=== PATIENT | male | born 1935 | race Caucasian/White ===

== ENCOUNTER 2017-05-16 13:42 | Emergency (ER) | payer OTHER ==
[~2017-05-16] VITALS: Ht 165.1 cm; Wt 125.0 kg
[~2017-05-16 13:42] MED LIST: ACET-1311 PO; CALC0.2510 PO; CALC500T72 PO; CITA20TA9 PO; ERGO500037 PO; FERR1TAB62 PO; FLM4 PO; FLUT0.15 NAE; FURO40TA3 PO; IMMODIUM 2 MG PO; LACT1TAB4 PO; LACTINEX PO; LEVO137T3 PO; MAGN400T5 PO; METO2.5T PO; NVLGI SC; OXGN; POLY335019 PO; PRLSR20 PO; SKINCRE34 TOP; TRIA0.1C20 TOP; [UNRECOGNIZED DRUG - CODE] PO; [UNRECOGNIZED DRUG - SUPPLY]
[2017-05-16 13:44] VITALS: TEMP 36.4; Ht 165.1 cm; Wt 125.0 kg
[2017-05-16] MEDS ORDERED: FURO80TA63 PO (14:15)
[2017-05-16] MEDS ORDERED: TAMS0.4C38 PO (14:17)
[2017-05-16] MEDS ORDERED: ATOR10TA82 PO (14:20)
[2017-05-16] MEDS ORDERED: NVLG INJ (14:29)
[2017-05-16] MEDS ORDERED: CHOL1000 PO (14:30)
--- NOTE | 2017-05-16 14:35 | DIAGNOSTIC IMAGING REPORT ---
HEAD CT NONCONTRAST CT DOSE: 537.48 mGy.cm HISTORY: fall, posterior impact TECHNIQUE: Multiaxial CT images of the head were performed without the use of intravenous contrast. Automated exposure control was utilized for this study. Comparison: Head CT 12/19/2010. Findings: The paranasal sinuses and mastoid air cells are clear. The calvarium and skull base are intact. There is no mass, hematoma, midline shift, acute infarct. White matter hypodensity is nonspecific but suggestive of microvascular ischemic change. The ventricles and sulci demonstrate mild age-related involutional changes. Impression: No significant change compared to the prior study. No acute intracranial abnormality. Electronically signed by: Jah Campos M.D. 05/16/2017 2:34 PM Dictated Date/Time: 05/16/2017 2:24 PM
[2017-05-16 15:13] VITALS: BP 161/77; PULSE 64; O2SAT 94
--- NOTE | 2017-05-16 18:31 | EMERGENCY ROOM VISIT NOTE ---
History Report prepared by María: Brenda Harley Under the Supervision of: Dr. Oskar Gutierrez M.D. First contact with patient: 13:51 Chief Complaint: FALL Stated Complaint: FELL YESTERDAY, HIT HEAD History of Present Illness The patient is an 81 year old male who presents to the Emergency Room with complaints of a sudden fall that occurred yesterday. He currently rates his discomfort as a 1/10 in severity. The patient states that yesterday he fell after he lost his balance when he fell over. He states that he hit the back of his head and bruised his right elbow due to the fall. The patient states that he takes aspirin daily. He reports a history of congestive heart failure, pneumonia, and skin cancer. The patient notes chronic lower back pain. He reports that he lives alone and does not have family in the area. The patient states that he has been doing everything normally since the fall, noting that he drove here today. Pt denies LOC, headache, visual changes, neck pain, chest pain, breathing difficulties, nausea, vomiting, abdominal pain, extremity pain, numbness, weakness, open wounds, active bleeding, or other complaints. Source of History: patient Onset: yesterday Position: other (global) Symptom Intensity: 1/10 Quality: other (fall) Timing: other (sudden) Note: Associated Symptoms: right elbow bruise, hit back of head Review of Systems See HPI for pertinent positives and negatives. A total of ten systems were reviewed and were otherwise negative. Past Medical & Surgical Medical Problems: (1) Atrial fibrillation (2) Benign essential hypertension (3) Congenital heart failure (4) Diabetes mellitus type 2 (5) Gastroesophageal reflux disease (6) Heart disease (7) History of malignant neoplasm of prostate (8) Hypothyroidism (9) Irradiation cystitis (10) Obesity (11) Peripheral venous insufficiency (12) Pleural effusion Family History Cancer Diabetes mellitus Social History Smoking Status: Never Smoker Drug Use: none Marital Status: Housing Status: care home Occupation Status: employed, retired Current/Historical Medications Scheduled Aspirin (Qc Childrens Aspirin), 81 MG PO DAILY Atorvastatin (Lipitor), 10 MG PO QPM Calcitriol (Rocaltrol Cap), 0.25 MCG PO DAILY Calcium Ascorbate (Vitamin C), 500 MG PO DAILY Cholecalciferol (Vitamin D3), 1 TAB PO DAILY Citalopram Hydrobromide (Celexa), 20 MG PO DAILY Eucerin (Eucerin), 1 APPLN TOP 2XWK Ferrous Sulfate (Ferrous Sulfate), 325 MG PO DAILY Fluticasone Propionate (Nasal) (Flonase Allergy Relief), 2 SPRAYS LAURA DAILY Furosemide (Lasix), 80 MG PO BID Insulin Aspart (Novolog), 1 DOSE INJ QID Lactobacillus (Floranex), 1 TAB PO TID Levothyroxine Sodium (Levothyroxine Sodium), 137 MCG PO DAILY Magnesium Oxide (Mag-Ox), 400 MG PO DAILY Metolazone (Zaroxolyn), 2.5 MG PO MWF Omeprazole (Prilosec), 20 MG PO DAILY Tamsulosin Hcl (Flomax), 0.4 MG PO DAILY Scheduled PRN Acetaminophen (Tylenol), 650 MG PO Q4 PRN for Pain Polyethylene Glycol 3350 (Miralax), 17 GM PO DAILY PRN for Constipation Allergies Coded Allergies: No Known Allergies (Unverified , 05/16/17) Physical Exam Vital Signs Date Time Temp Pulse Resp B/P (MAP) Pulse Ox O2 Delivery O2 Flow Rate FiO2 05/16/17 15:13 64 18 161/77 94 05/16/17 14:04 61 20 150/84 97 Room Air 05/16/17 13:44 36.4 68 17 150/79 93 Room Air Physical Exam GENERAL: Awake, alert, well-appearing, in no distress HENT: Small ecchymosis on superior occiput. Oropharynx unremarkable. EYES: Normal conjunctiva. Sclera non-icteric. NECK: Supple. No nuchal rigidity. FROM. No JVD. Nontender. RESPIRATORY: Clear to auscultation. CARDIAC: Regular rate, normal rhythm. Extremities warm and well perfused. Pulses equal. ABDOMEN: Soft, non-distended. No tenderness to palpation. No rebound or guarding. No masses. RECTAL: Deferred. MUSCULOSKELETAL: Ecchymosis to right elbow without tenderness or limited range of motion. The rest of the right upper extremity is atraumatic. Chest examination reveals no tenderness. The back is symmetrical on inspection without obvious abnormality. Minimal lumbar tenderness that the patient states is chronic. There is no CVA tenderness to palpation. No joint edema. LOWER EXTREMITIES: 3+ pitting edema. Calves are equal size bilaterally and non- tender. No discoloration. NEURO: Normal sensorium. No sensory or motor deficits noted. SKIN: No rash or jaundice noted. Medical Decision & Procedures ER Provider Diagnostic Interpretation: CT: Radiology results as stated below per my review and radiologist interpretation HEAD CT NONCONTRAST CT DOSE: 537.48 mGy.cm HISTORY: fall, posterior impact TECHNIQUE: Multiaxial CT images of the head were performed without the use of intravenous contrast. Automated exposure control was utilized for this study. Comparison: Head CT 12/19/2010. Findings: The paranasal sinuses and mastoid air cells are clear. The calvarium and skull base are intact. There is no mass, hematoma, midline shift, acute infarct. White matter hypodensity is nonspecific but suggestive of microvascular ischemic change. The ventricles and sulci demonstrate mild age-related involutional changes. Impression: No significant change compared to the prior study. No acute intracranial abnormality. Electronically signed by: Jah Campos M.D. 05/16/2017 2:34 PM Dictated Date/Time: 05/16/2017 2:24 PM ED Course 1358: The patient was evaluated in room B2. A complete history and physical exam was performed. 1504: I reevaluated the patient and he is doing well. I discussed the exam findings with him and I discussed the treatment plan. He verbalized complete understanding and agreement. He is ready to go home. Medical Decision Medication Reconciliation: I attest that I have personally reviewed the patient' s current medication list Blood pressure screening: Patient was found to have an elevated blood pressure and was referred to their primary doctor for recheck and further treatment. Triage Nursing notes reviewed. The patient's presentation and history were concerning for a fall and head injury. Etiologies such as closed head injury, contusion, concussion, fracture, soft tissue injury,intracranial bleeding, as well as other traumatic pathologies were entertained. The patient's physical examination is as above. He had no neck issues. There were no open wounds. He stated his fall was accidental. The patient underwent CT imaging and this was negative. On reassessment the patient was doing well. He has a minor closed head injury from his fall. He is doing well with his daily activities.. The patient has no other complaints. I discussed conservative management. He was in agreement. The patient was discharged in stable condition. Impression Primary Impression: Closed head injury Additional Impression: Fall Scribe Attestation The scribe's documentation has been prepared under my direction and personally reviewed by me in its entirety. I confirm that the note above accurately reflects all work, treatment, procedures, and medical decision making performed by me. Departure Information Dispostion Home / Self-Care Referrals Luis Manuel Hinojosa D.O. (PCP) Forms HOME CARE DOCUMENTATION FORM, IMPORTANT VISIT INFORMATION Patient Instructions My [facility] Additional Instructions Tylenol(acetaminophen) may be used for headaches. Use 1000mg every six hours as needed. Avoid using more than 4000mg in a 24 hour period. Avoid anti-inflammatories such as aspirin, ibuprofen, Alleve, naprosyn, Motrin, or Advil as these can interfere with blood clotting and lead to bleeding within the brain after a traumatic injury. FOLLOW UP INSTRUCTIONS: You should have a follow up with your family doctor in 3-5 days regarding your injury. Problems could arise over the next 24 to 48 hours and you MUST go to the hospital immediately if you: -Have a headache that suddenly gets worse. -Are very drowsy or cannot be woken up from sleep. -Can't recognize people or places. -Have repeated vomiting. -Behave unusually, seemed confused, or start acting irritable. -Have a seizure (arms and legs start jerking uncontrollably). -Have weak or numb arms or legs. -Are unsteady on your feet -Experience slurred speech or difficulty speaking. Problem Qualifiers
== END 2017-05-16 15:13 | disposition home or self-care (01) ==
LOC: C.EDB 13:45
DX: S09.90XA Unspecified injury of head, initial encounter (principal); W19.XXXA Unspecified fall, initial encounter; I50.9 Heart failure, unspecified; Z87.01 Personal history of pneumonia (recurrent); Z85.828 Personal history of other malignant neoplasm of skin; I48.91 Unspecified atrial fibrillation; I10 Essential (primary) hypertension; E11.9 Type 2 diabetes mellitus without complications; K21.9 Gastro-esophageal reflux disease without esophagitis; E03.9 Hypothyroidism, unspecified; Z85.46 Personal history of malignant neoplasm of prostate; E66.9 Obesity, unspecified; I73.9 Peripheral vascular disease, unspecified; Z80.9 Family history of malignant neoplasm, unspecified; Z83.3 Family history of diabetes mellitus; Z79.82 Long term (current) use of aspirin; Z79.4 Long term (current) use of insulin; Z79.899 Other long term (current) drug therapy

== ENCOUNTER 2018-11-26 16:11 | Inpatient (IN) ==
[2018-11-26] MEDS ORDERED: SODIUM CHLORIDE 0.9% 1000ML 1,000 ML IV STA (16:34)
[2018-11-26 17:15] LABS: INR 1.1 (0.9-1.1); Partial Thromboplastin Time 26.6 Seconds (21.0-31.0); Prothrombin Time 11.4 Seconds (9.0-12.0)
[2018-11-26 17:16] LABS: Appearance Urine Slightly Cloudy (Clear); Color Urine Red
[2018-11-26 17:17] LABS: Specific Gravity Urine 1.011 (1.000-1.060)
[2018-11-26 17:19] LABS: RBC Urine >30 /hpf (0-4); WBC Urine >30 /hpf (0-5)
[2018-11-26 17:20] LABS: Hematocrit (blood only) 21.2 % (42-52); Hemoglobin 6.5 g/dL (14.0-18.0); Mean Corpuscular Hgb Conc 30.7 g/dL (32-36); Mean Platelet Volume 9.1 fL (7.4-10.4); Platelet Count 277 K/uL (130-400); RDW Coefficient of Variation 13.9 % (11.5-14.5); RDW Standard Deviation 50.1 fL (36.4-46.3); Red Blood Count 2.12 M/uL (4.7-6.1); White Blood Count 6.42 K/uL (4.8-10.8)
[2018-11-26 17:21] LABS: Bacteria Urine 2+ (Negative); Calcium Oxalate Crystals Urine Present (None Prsent)
[2018-11-26 17:25] LABS: Albumin Globulin Ratio 0.5 (0.9-2); Albumin Level 1.9 gm/dl (3.4-5.0); BUN Creatinine Ratio 19.7 (10-20); Bilirubin,Total 0.2 mg/dl (0.2-1); Calcium 8.6 mg/dl (8.5-10.1); Creatinine Clr Calc Pharmacy 29.8 ml/min; Est GFR (African American) 32.7; Est GFR (Non-African American) 28.2; Globulin 4.2 gm/dl (2.5-4.0); Potassium 4.5 mmol/L (3.5-5.1); Total Protein 6.1 gm/dl (6.4-8.2)
[2018-11-26 17:28] LABS: Basophils # (auto) 0.02 K/uL (0-0.2); Basophils % (auto) 0.3 %; Eosinophils # (auto) 0.32 K/uL (0-0.5); Hypochromasia Present; Immature Granulocytes # (auto) 0.01 K/uL (0.00-0.02); Immature Granulocytes % (auto) 0.2 %; Lymphocytes # (auto) 0.91 K/uL (1.2-3.4); Lymphocytes % (auto) 14.2 %; Monocytes # (auto) 0.45 K/uL (0.11-0.59); Neutrophils # (auto) 4.71 K/uL (1.4-6.5); Neutrophils % (auto) 73.3 %
[2018-11-26] MEDS ORDERED: cefTRIAXone SODIUM 1,000 MG/50 ML BAG IV STA (17:59)
[2018-11-26] MEDS ORDERED: POLYETHYLENE (MIRALAX) 17 GM PACK PO PRN (18:33)
--- NOTE | 2018-11-26 18:43 | CT Scan Report ---
ADDENDUM Addendum: Moderate right and trace left pleural effusions are partially imaged on this exam. Electronically signed by: Giovanni Washington M.D. 11/26/2018 7:[address] OF THE ABDOMEN AND PELVIS WITHOUT CONTRAST CLINICAL HISTORY: lower abd pain, hematuria, hypotension COMPARISON STUDY: CT of the abdomen and pelvis November 05, 2018 and right upper quadrant ultrasound . TECHNIQUE: Axial images of the abdomen and pelvis were obtained without IV contrast. Images were revi ewed in the axial, sagittal, and coronal planes. Automated exposure control was utilized for the bassem dy. A dose lowering technique was utilized adhering to the principles of ALARA. FINDINGS: A moderate right pleural effusion has slightly increased in size since CT of November 05 018. There is a trace left pleural effusion. Associated airspace opacity favors atelectasis. Evaluati on of the abdomen and pelvis is suboptimal on this unenhanced exam. No pneumatosis, free air or jean pierre l venous gas is present. Several right renal calculi measure up to 5 mm. There are no ureteral calcul i. There is no hydronephrosis. There is mild bladder wall thickening. Note is made of a lobulated den sity along the base of the bladder. This is indeterminate. A suspected right renal cyst is noted. The gallbladder is mildly distended. There are stones within the gallbladder. There is trace pericholecy stic infiltration, similar to prior exam. There is no evidence for a bowel obstruction. The appendix is normal. An umbilical hernia which contains small bowel loops is noted. There is no resultant bowel obstruction. This colonic diverticulosis without evidence for acute diverticulitis. No suspicious os seous lesions are noted. Mild anasarca is noted. IMPRESSION: 1. Cholelithiasis with mild gallbladder distention and trace pericholecystic infiltration. This is si milar to CT of November 05, 2018. If concern for acute cholecystitis, a hepatobiliary scan could be o btained. 2. No bowel obstruction. Colonic diverticulosis without evidence for acute diverticulitis. 3. Lobulated density at the base of the bladder. This may reflect a portion of the prostate gland. Ho wever, a mass or hemorrhage could appear similar. If persistent hematuria, urology consultation for c onsideration for cystoscopy is recommended. 4. Right-sided nephrolithiasis. No ureteral calculi. Electronically signed by: Giovanni Washington M.D. 11/26/2018 6:42 PM
--- NOTE | 2018-11-26 18:45 | Emergency Department Note ---
Entered by Capri Comer acting as a scribe for ED Provider Note CHIEF COMPLAINT: Hypotension HISTORY OF PRESENT ILLNESS: The patient is a 83 year old male who presents to the Emergency Room with complaints of an episode of hypotension that began today. The patient states that he is dizzy with movement occasionally. He states that he has had blood in his urine recently, and states that he has had discomfort with urination during this time. Per EMS, the patient urinated a 4 inch clot today. The patient denies wearing oxygen at home, but states that he does wear a CPAP. Pt denies LOC, headache, fevers, chills, diaphoresis, visual changes, neck pain , chest pain, breathing difficulties, nausea, vomiting, abdominal pain, back pain, melena, hematochezia, numbness, weakness, lymphadenopathy, rash, or other complaints. REVIEW OF SYSTEMS: See HPI for pertinent positives and negatives. A total of ten systems were reviewed and were otherwise negative. PMHx/PSHx: Prostate cancer CKD CHF Diabetes Atrial fibrillation Hypertension SOCIAL HISTORY: Patient lives at home. PHYSICAL EXAM: GENERAL: Awake, alert, well-appearing, in no distress HENT: Normocephalic, atraumatic. Oropharynx unremarkable. EYES: Normal conjunctiva. Sclera non-icteric. NECK: Supple. No nuchal rigidity. FROM. No masses. RESPIRATORY: Clear to auscultation. No wheezes. No rales. Normal respiratory effort. CARDIAC: Tachycardic rate. Normal rhythm. No murmurs. No rubs. Extremities warm and well perfused. Pulses equal. No JVD. GI: Soft, non-distended. Suprapubic abdominal discomfort. No rebound or guarding. No masses. RECTAL: Deferred. MUSCULOSKELETAL: Atraumatic. Chest examination reveals no tenderness. The back is symmetrical on inspection without obvious abnormality. There is no CVA tenderness to palpation. No joint edema. LOWER EXTREMITIES: Calves are equal size bilaterally and non-tender. 2+ bilateral edema. Chronic discoloration. NEURO: Normal sensorium. No sensory or motor deficits noted. SKIN: No rash or jaundice noted. EMERGENCY DEPARTMENT COURSE: 1626: Past medical records reviewed. The patient was evaluated in room B11B, and a complete history and physical examination were performed. 1734: The patient has a hemoglobin of 6. 1801: I discussed the case with Dr. Rivera Hospitalist who will further evaluate the patient. 1825: I checked on the patient and reevaluated him. He consented to receiving blood. MEDICAL DECISION MAKING: Prior records/ancillary studies reviewed and summarized above. Nursing notes reviewed and agree them. The patient's history was concerning for hematuria and hypotension. Differential diagnosis: Etiologies such as exacerbation of cystitis, symptom medic anemia, metabolic, infection, hypo/hyperglycemia, electrolyte abnormalities, cardiac sources, intracerebral event, toxicologic, neurologic, as well as others were entertained. Physical examination: As above. ER treatment provided: IV Lock IV Rocephin IV normal saline Typed and crossed for 2 units packed red blood cells and transfusion ordered in the ER. On reassessment the patient felt better. Diagnostics interpretation by me: ECG: A. fib with RVR. The labs revealed significant anemia on CBC. Hemoglobin was 6.5. Creatinine was 2. Chemistry panel was otherwise unremarkable. Mildly low albumin. Imaging studies: CT scan of the abdomen pelvis was ordered and etiology read is pending. The patient does have what appears to be a thickened bladder wall concerning for cystitis on my interpretation. Pleural effusion is also noted. The patient had hypotension. This improved with IV fluids. He also had what appeared to be a UTI. He is not febrile. He has no leukocytosis. The patient was treated with IV Rocephin. He was typed and crossed for packed red blood cell transfusion. He consented. Consultation: A consultation was placed with the hospitalist. The case was discussed and diagnostics were reviewed. The patient was evaluated in the ER for further treatment. IMPRESSION: Hypotension Severe anemia UTI Atrial fibrillation with RVR PLAN: Admit. CRITICAL CARE: I have personally spent greater than 30 minutes of critical care time in the direct management of this patient. This includes bedside care, interpretation of diagnostic studies, and testing, discussion with consultants, patient, and other required patient management activities. This 30 minutes is in excess of all separately billable procedures. The scribe's documentation has been prepared under my direction and personally reviewed by me in its entirety. I confirm that the note above accurately reflects all work, treatment, procedures, and medical decision making performed by me. Impression & Plan Hypotension, UTI (urinary tract infection), Severe anemia, Atrial fibrillation with RVR Past Med/Surg History Social History marital status: / Current Living Situation: Custodial current occupational status: retired Feels Safe at Home: Yes Smoking Status: Former smoker Hx Alcohol Use: No Hx Substance Use: No Beliefs That Will Affect Care: None Preferred Language: Trinidadian Results & Data Vital Signs Vital Signs - 24 hr 11/26/18 16:18 11/26/18 16:40 Temperature 36.5 C Temperature Source Oral Sepsis Recent Fever Within 48 Hours No Sepsis New/Unexplained Change in Mental Status No Sepsis Action Taken by Nursing No Action Required Pulse Rate 99 H 106 H Respiratory Rate 18 Respiratory Depth Normal Blood Pressure 105/50 L Blood Pressure Mean 68 Pulse Oximetry 90 99 Oxygen Delivery Method Room Air Nasal Cannula Oxygen Flow Rate 2 Home Medications Current Medication List: was personally reviewed by me Laboratory Data Attestation: I reviewed the patient's lab results. Result diagrams: 11/26/18 16:41 11/26/18 16:41 Lab Results 11/26/18 11/26/18 11/26/18 Range/Units 16:41 16:41 16:41 WBC 6.42 (4.8-10.8) K/uL RBC 2.12 L (4.7-6.1) M/uL Hgb 6.5 L* (14.0-18.0) g/dL Hct 21.2 L (42-52) % MCV 100.0 (80-100) fL MCH 30.7 (25-34) pg MCHC 30.7 L (32-36) g/dL RDW Std Deviation 50.1 H (36.4-46.3) fL RDW Coeff of Yue 13.9 (11.5-14.5) % Plt Count 277 (130-400) K/uL MPV 9.1 (7.4-10.4) fL Immature Gran % (Auto) 0.2 % Neut % (Auto) 73.3 % Lymph % (Auto) 14.2 % [place] % (Auto) 7.0 % Eos % (Auto) 5.0 % Baso % (Auto) 0.3 % Immature Gran # (Auto) 0.01 (0.00-0.02) K/uL Neut # (Auto) 4.71 (1.4-6.5) K/uL Lymph # (Auto) 0.91 L (1.2-3.4) K/uL [place] # (Auto) 0.45 (0.11-0.59) K/uL Eos # (Auto) 0.32 (0-0.5) K/uL Baso # (Auto) 0.02 (0-0.2) K/uL Hypochromasia Present PT 11.4 (9.0-12.0) Seconds INR 1.1 (0.9-1.1) APTT 26.6 (21.0-31.0) Seconds PTT Ratio 1.0 Sodium 140 (136-145) mmol/L Potassium 4.5 (3.5-5.1) mmol/L Chloride 105 (98-107) mmol/L Carbon Dioxide 30 (21-32) mmol/L Anion Gap 5.0 (3-11) BUN 41 H (7-18) mg/dl Creatinine 2.08 H (0.6-1.4) mg/dl Est Cr Clr Drug Dosing 29.8 ml/min Est GFR ( Amer) 32.7 Est GFR (Non-Af Amer) 28.2 BUN/Creatinine Ratio 19.7 (10-20) Glucose 143 H (70-99) mg/dl Calcium 8.6 (8.5-10.1) mg/dl Total Bilirubin 0.2 (0.2-1) mg/dl AST 10 L (15-37) U/L ALT 8 L (12-78) U/L Alkaline Phosphatase 50 (45-117) U/L Total Protein 6.1 L (6.4-8.2) gm/dl Albumin 1.9 L (3.4-5.0) gm/dl Globulin 4.2 H (2.5-4.0) gm/dl Albumin/Globulin Ratio 0.5 L (0.9-2) Lipase 86 (73-393) U/L Specimen Hemolysis Urine Color Urine Appearance (Clear) Urine pH (4.5-7.5) Ur Specific [place] (1.000-1.060) Urine Protein (Negative) Urine Glucose (UA) (Negative) Urine Ketones (Negative) Urine Blood (Negative) Urine Nitrite (Negative) Urine Bilirubin (Negative) Urine Urobilinogen (Negative) Ur Leukocyte Esterase (Negative) Urine RBC (0-4) /hpf Urine WBC (0-5) /hpf Ur Epithelial Cells (0-5) /lpf Calcium Oxalate Crystal (None Prsent) Urine Bacteria (Negative) Blood Type Antibody Screen Crossmatch 11/26/18 11/26/18 Range/Units 16:41 16:59 WBC (4.8-10.8) K/uL RBC (4.7-6.1) M/uL Hgb (14.0-18.0) g/dL Hct (42-52) % MCV (80-100) fL MCH (25-34) pg MCHC (32-36) g/dL RDW Std Deviation (36.4-46.3) fL RDW Coeff of Yue (11.5-14.5) % Plt Count (130-400) K/uL MPV (7.4-10.4) fL Immature Gran % (Auto) % Neut % (Auto) % Lymph % (Auto) % [place] % (Auto) % Eos % (Auto) % Baso % (Auto) % Immature Gran # (Auto) (0.00-0.02) K/uL Neut # (Auto) (1.4-6.5) K/uL Lymph # (Auto) (1.2-3.4) K/uL [place] # (Auto) (0.11-0.59) K/uL Eos # (Auto) (0-0.5) K/uL Baso # (Auto) (0-0.2) K/uL Hypochromasia PT (9.0-12.0) Seconds INR (0.9-1.1) APTT (21.0-31.0) Seconds PTT Ratio Sodium (136-145) mmol/L Potassium (3.5-5.1) mmol/L Chloride (98-107) mmol/L Carbon Dioxide (21-32) mmol/L Anion Gap (3-11) BUN (7-18) mg/dl Creatinine (0.6-1.4) mg/dl Est Cr Clr Drug Dosing ml/min Est GFR ( Amer) Est GFR (Non-Af Amer) BUN/Creatinine Ratio (10-20) Glucose (70-99) mg/dl Calcium (8.5-10.1) mg/dl Total Bilirubin (0.2-1) mg/dl AST (15-37) U/L ALT (12-78) U/L Alkaline Phosphatase (45-117) U/L Total Protein (6.4-8.2) gm/dl Albumin (3.4-5.0) gm/dl Globulin (2.5-4.0) gm/dl Albumin/Globulin Ratio (0.9-2) Lipase (73-393) U/L Specimen Hemolysis Urine Color Red Urine Appearance Slightly Cloudy H (Clear) Urine pH (4.5-7.5) Ur Specific [place] 1.011 (1.000-1.060) Urine Protein (Negative) Urine Glucose (UA) (Negative) Urine Ketones (Negative) Urine Blood (Negative) Urine Nitrite (Negative) Urine Bilirubin (Negative) Urine Urobilinogen (Negative) Ur Leukocyte Esterase (Negative) Urine RBC >30 H (0-4) /hpf Urine WBC >30 H (0-5) /hpf Ur Epithelial Cells 10-20 H (0-5) /lpf Calcium Oxalate Crystal Present H (None Prsent) Urine Bacteria 2+ H (Negative) Blood Type AB Positive Antibody Screen NEGATIVE Crossmatch See Detail Administered Medications Sodium Chloride (Nss 1000ml) 1,000 mls @ 125 mls/hr IV .Q8H STA Stop: 11/27/18 00:33 Last Admin: 11/26/18 17:28 Dose: 125 mls/hr Discontinued Medications Ceftriaxone Sodium (Rocephin) 1,000 mg in 50 mls @ 100 mls/hr IV NOW STA Stop: 11/26/18 18:28 Last Admin: 11/26/18 18:16 Dose: 100 mls/hr ECG Data Attestation: I personally reviewed and interpreted this ECG as follows: Indication: other (hypotension) Rate (beats per minute): 113 Rhythm: atrial fibrillation (with RVR) Findings: + nonspecific-ST abn; no PVC and no ST elevation Blood Pressure Blood Pressure Findings: Low blood pressure Blood Pressure Disposition: further management by hospitalist Discharge Plan Visit Data Chief Complaint: Hypotension Stated Complaint: HYPOTENSION ED Provider: Oskar Gutierrez Discharge Problem: Hypotension, UTI (urinary tract infection), Severe anemia, Atrial fibrillation with RVR Patient Disposition: Being Evaluated by Hospitalist Forms Stand Alone Forms: My [facility] Prescriptions Prescriptions: No Action calcitriol 0.25 mcg capsule 0.25 mcg PO DAILY RF: 0 ascorbic acid (vitamin C) 500 mg capsule 500 mg PO DAILY RF: 0 citalopram [Celexa] 20 mg tablet 20 mg PO DAILY RF: 0 ferrous sulfate 325 mg (65 mg iron) tablet,delayed release (DR/EC) 325 mg PO DAILY RF: 0 fluticasone [Flonase Allergy Relief] 50 mcg/actuation spray,suspension 2 sprays INTNAS DAILY RF: 0 levothyroxine 137 mcg capsule 137 mcg PO DAILY RF: 0 magnesium oxide 400 mg capsule 400 mg PO DAILY RF: 0 omeprazole 20 mg tablet,delayed release (DR/EC) 20 mg PO DAILY RF: 0 polyethylene glycol 3350 [Miralax] 17 gram/dose powder 17 gm PO DAILY PRN (Reason: Constipation) RF: 0 tamsulosin [Flomax] 0.4 mg capsule 0.4 mg PO DAILY RF: 0 acetaminophen [Tylenol] 325 mg Capsule 650 mg PO Q4 MDD 3g/24hr PRN (Reason: Fever Or Pain) RF: 0 cholecalciferol (vitamin D3) [Vitamin D3] 2,000 unit Tablet 2,000 unit PO DAILY RF: 0 torsemide 20 mg Tablet 20 mg PO DAILY RF: 0 potassium chloride 10 mEq Tablet Extended Release 10 meq PO DAILY RF: 0 simvastatin 20 mg Tablet 20 mg PO HS RF: 0 metoprolol tartrate 25 mg Tablet 12.5 mg PO BID RF: 0 insulin lispro [Humalog U-100 Insulin] 100 unit/mL solution subcut UD PRN (Reason: Hyperglycemia) RF: 0 Lactobacillus acidoph-L.bulgar [Floranex] 1 million cell Tablet 1 tab PO TID RF: 0 ciprofloxacin HCl [Cipro] 500 mg Tablet 500 mg PO DAILY RF: 0 Referrals Referrals: Mario Perez [Primary Care Provider] - The scribe's documentation has been prepared under my direction and personally reviewed by me in its entirety. I confirm that the note above accurately reflects all work, treatment, procedures, and medical decision making performed by me.
--- NOTE | 2018-11-26 18:54 | History & Physical Report ---
Date of Service November 26, 2018 Assessment & Plan (1) Acute blood loss anemia: (2) Hypotension: (3) Hematuria: (4) UTI (urinary tract infection): (5) Prostate cancer: Gross hematuria persistent with passage of clots noted at the shelter and via EMS today. Patient notably hypotensive with systolic blood pressure in the 80s and received IV fluids on his way to the ER where repeat systolic blood pressure was 105. Patient is likely hypovolemic secondary to acute blood loss anemia. This is in the setting of prostate cancer with a history of radiation cystitis, as well as a recent history of complicated UTI treated with a prolonged course of ciprofloxacin. Plan will be to replace blood with 2 units of packed red blood cells. Lasix will be used in between units in the setting of diastolic heart failure and stage IV CKD to avoid overload. Volume status will be reevaluated tomorrow and fluids continued is needed. Urology will be consulted, especially in light of CT findings consistent with possible hematoma. The patient will be covered empirically on Rocephin pending urine culture results. (6) CKD (chronic kidney disease), stage IV: Currently at baseline. Avoid nephrotoxic substances if able. (7) DM type 2 (diabetes mellitus, type 2): Placed on Lantus twice daily with insulin sliding scale coverage #2 including carb coverage. A1c in a.m. (8) DVT prophylaxis: Chemoprophylaxis contraindicated in setting of acute blood loss anemia. SCDs. Full code as discussed with patient on admission Disposition-to telemetry DO Lenin [facility] Hospitalist History of Present Illness Chief Complaint: Referral from [facility] for gross hematuria and hypotension with systolic blood pressure reportedly in the 80s. Primary Care Provider: [facility] The patient is an 83-year-old man with a history of prostate cancer status post radiation with a history of radiation cystitis. He was recently admitted to [facility] 2 weeks ago for gross hematuria with a recurrent complicated UTI secondary to E. coli. At that time he was found to have acute blood loss anemia requiring 1 unit of packed red blood cells. He has a history of dementia and cannot provide any history from his discharge until now. At some point he redeveloped worsening dysuria, urinary urgency, urinary frequency and suprapubic pain. He denies any flank pain, and has no history of kidney stones per his report. His suprapubic pain is only present upon palpation and does not radiate. He is answering questions well, and is clearly not delirious , but is only oriented to self. During his last admission urology placed a three-way catheter and bladder irrigation was performed and his Leone catheter was subsequently discontinued on 11/08. He continued to have passage of hematuria and blood clots intermittently without evidence of bladder outlet obstruction prior to discharge. He returns today from [facility] where he was undergoing rehabilitation from prior hospital stay. He denies any chest pain, shortness of breath, fever, chills. He reports tolerating p.o. without issue and has been reportedly staying hydrated. He reports no issues ambulating with his walker with respect to lightheadedness. He reports that his medical power of geotechnical engineer is 1 of his daughters, possibly Florence or possibly Katerine. Allergies Allergy/AdvReac Type Severity Reaction Status Date / Time No Known Allergies Allergy Verified 11/04/18 15:11 Home Medications Home Medications Medication Instructions Recorded Confirmed Type ascorbic acid (vitamin C) 500 mg 500 mg PO DAILY cap 07/23/18 11/26/18 History capsule calcitriol 0.25 mcg capsule 0.25 mcg PO DAILY cap 07/23/18 11/26/18 History citalopram 20 mg tablet 20 mg PO DAILY 07/23/18 11/26/18 History ferrous sulfate 325 mg (65 mg 325 mg PO DAILY tab 07/23/18 11/26/18 History iron) tablet,delayed release fluticasone 50 mcg/actuation nasal 2 sprays INTNAS DAILY 07/23/18 11/26/18 History spray,suspension levothyroxine 137 mcg capsule 137 mcg PO DAILY 07/23/18 11/26/18 History magnesium oxide 400 mg capsule 400 mg PO DAILY cap 07/23/18 11/26/18 History omeprazole 20 mg tablet,delayed 20 mg PO DAILY 07/23/18 11/26/18 History release polyethylene glycol 3350 17 17 gm PO DAILY PRN gm 07/23/18 11/26/18 History gram/dose oral powder tamsulosin 0.4 mg capsule 0.4 mg PO DAILY 07/23/18 11/26/18 History acetaminophen [Tylenol] 650 mg PO Q4 PRN MDD 3g/24hr 09/26/18 11/26/18 History cholecalciferol (vitamin D3) 2,000 unit PO DAILY 09/26/18 11/26/18 History [Vitamin D3] potassium chloride 10 meq PO DAILY 11/04/18 11/26/18 History simvastatin 20 mg PO HS 11/04/18 11/26/18 History torsemide 20 mg PO DAILY 11/04/18 11/26/18 History Lactobacillus acidoph-L.bulgar 1 tab PO TID 11/26/18 11/26/18 History [Floranex] ciprofloxacin HCl [Cipro] 500 mg PO DAILY 11/26/18 11/26/18 History insulin lispro [Humalog U-100 0 units SUBCUT UD PRN 11/26/18 11/26/18 History Insulin] metoprolol tartrate 12.5 mg PO BID 11/26/18 11/26/18 History Past Med/Surg History Medical History Dyslipidemia (Chronic) Hypothyroidism (Chronic) Prostate cancer (Resolved) Treated with radiation CKD (chronic kidney disease), stage IV (Chronic) Diastolic CHF (Chronic) DM type 2 (diabetes mellitus, type 2) (Chronic) DENIS (obstructive sleep apnea) (Chronic) GERD (gastroesophageal reflux disease) (Chronic) Radiation cystitis (Chronic) Atrial fibrillation (Chronic) Hypertension (Chronic) Hypothyroidism (Chronic) Peripheral venous insufficiency (Chronic) Closed head injury (Resolved) Pleural effusion (Resolved) Chronic diastolic heart failure (Inactive) Cystitis (Inactive) GERD (gastroesophageal reflux disease) (Inactive) History of prostate cancer (Inactive) Secondary hyperparathyroidism (Inactive) Sleep apnea (Inactive) Family History Other Family history non-contributory Social History marital status: / Current Living Situation: Half-Way current occupational status: retired Feels Safe at Home: Yes Smoking Status: Former smoker Hx Alcohol Use: No Hx Substance Use: No Beliefs That Will Affect Care: None Preferred Language: Congolese Review of Systems At least ten systems were reviewed and negative except as indicated in HPI above. Physical Exam 2 Vital Signs (Past 24 Hours): Last Vital Signs Temp 36.5 C 11/26/18 16:18 Pulse 106 H 11/26/18 16:40 Resp 18 11/26/18 16:18 BP 105/50 L 11/26/18 16:18 Pulse Ox 99 11/26/18 16:40 CONSTITUTIONAL: obese, vitals as above, generally well-appearing EYES: normal conjuctivae, no scleral icterus ENT: MMM RESPIRATORY: clear to auscultation bilaterally, no crackles, rales or wheezes, normal respiratory effort CARDIOVASCULAR: irregular rate and irreg rhythm, S1 and 2 heard without murmurs , gallops or rubs, no JVD, no peripheral edema. ABDOMINAL: normal bowel sounds, soft, protuberant abdomen with large pannus, TTP in suprapubic region, nondistended. no CVA tenderness, small midline hernia is present in lower abdomen-reducible. MUSCULOSKELETAL: generalized weakness, head is normocephalic and atraumatic SKIN: warm and dry, erythroderma to bilateral LE NEUROLOGIC: No facial palsy, no dysarthria. CN 2-12 grossly intact, oriented to self only, normal speech PSYCHIATRIC: alert cooperative and oriented to person only, euthymic mood. Results & Data Laboratory Results Short CBC 11/26/18 Range/Units 16:41 WBC 6.42 (4.8-10.8) K/uL Hgb 6.5 L* (14.0-18.0) g/dL Hct 21.2 L (42-52) % Plt Count 277 (130-400) K/uL BMP 11/26/18 16:41 Sodium 140 Potassium 4.5 Chloride 105 Carbon Dioxide 30 BUN 41 H Creatinine 2.08 H Glucose 143 H Calcium 8.6 Liver Function 11/26/18 Range/Units 16:41 Total Bilirubin 0.2 (0.2-1) mg/dl AST 10 L (15-37) U/L ALT 8 L (12-78) U/L Alkaline Phosphatase 50 (45-117) U/L Albumin 1.9 L (3.4-5.0) gm/dl Urine 11/26/18 Range/Units 16:59 Urine Color Red Urine Appearance Slightly Cloudy H (Clear) Urine pH (4.5-7.5) Ur Specific [place] 1.011 (1.000-1.060) Urine Protein (Negative) Urine Glucose (UA) (Negative) Diagnostic Findings FINDINGS: A moderate right pleural effusion has slightly increased in size since CT of November 05, 2018. There is a trace left pleural effusion. Associated airspace opacity favors atelectasis. Evaluation of the abdomen and pelvis is suboptimal on this unenhanced exam. No pneumatosis, free air or portal venous gas is present. Several right renal calculi measure up to 5 mm. There are no ureteral calculi. There is no hydronephrosis. There is mild bladder wall thickening. Note is made of a lobulated density along the base of the bladder. This is indeterminate. A suspected right renal cyst is noted. The gallbladder is mildly distended. There are stones within the gallbladder. There is trace pericholecystic infiltration, similar to prior exam. There is no evidence for a bowel obstruction. The appendix is normal. An umbilical hernia which contains small bowel loops is noted. There is no resultant bowel obstruction. This colonic diverticulosis without evidence for acute diverticulitis. No suspicious osseous lesions are noted. Mild anasarca is noted. IMPRESSION: 1. Cholelithiasis with mild gallbladder distention and trace pericholecystic infiltration. This is similar to CT of November 05, 2018. If concern for acute cholecystitis, a hepatobiliary scan could be obtained. 2. No bowel obstruction. Colonic diverticulosis without evidence for acute diverticulitis. 3. Lobulated density at the base of the bladder. This may reflect a portion of the prostate gland. However, a mass or hemorrhage could appear similar. If persistent hematuria, urology consultation for consideration for cystoscopy is recommended. 4. Right-sided nephrolithiasis. No ureteral calculi. Code Status & VTE Plan Code Status Full code VTE Prophylaxis Plan VTE Prophylaxis will be ordered: Yes Reason for no VTE drug order: Contraindicated Critical Care Time Critical Care Time: No _ (1) Hypotension Hypotension type: unspecified hypotension type Trimester: Qualified Code(s) : I95.9 - Hypotension, unspecified (2) UTI (urinary tract infection) Encounter type: Hematuria presence: with hematuria Indwelling urinary catheter type: Urinary tract infection type: acute cystitis Qualified Code(s) : N30.01 - Acute cystitis with hematuria (3) Hematuria Hematuria type: gross Glomerular morphologic changes: Qualified Code(s): R31.0 - Gross hematuria (4) DM type 2 (diabetes mellitus, type 2) Diabetes mellitus superintendent container terminal insulin use: unspecified senior care insulin use status Diabetes mellitus complication status: with kidney complications Diabetes mellitus complication detail: with chronic kidney disease Diabetic retinopathy severity: Proliferative retinopathy type: Diabetes mellitus macular edema: Laterality: Chronic kidney disease stage: stage 3 (moderate) Qualified Code(s): E11.22 - Type 2 diabetes mellitus with diabetic chronic kidney disease; N18.3 - Chronic kidney disease, stage 3 (moderate)
[2018-11-26] MEDS ORDERED: SODIUM CHLORIDE 0.9% 250 ML IV PRN (19:58)
[2018-11-26] MEDS ORDERED: FUROSEMIDE 40 MG/4 ML VIAL IV SCH (19:58)
[2018-11-26] MEDS ORDERED: DEXTROSE 50% 50 ML SYRINGE IV PRN (19:58)
[2018-11-26] MEDS ORDERED: GLUCAGON FOR INJ 1 MG VIAL SQ PRN (19:58)
[2018-11-26] MEDS ORDERED: ACETAMINOPHEN 325 MG TAB PO PRN (19:58)
[2018-11-26] MEDS ORDERED: GLUCOSE 40% GEL 15 GM TUBE PO PRN (19:58)
[2018-11-26] MEDS ORDERED: GLUCOSE 10 TABS/TUBE PO PRN (19:58)
[2018-11-26] MEDS: SIMVASTATIN 20 MG TAB PO SCH (21:24)
[2018-11-26] MEDS: METOPROLOL TARTRATE 25 MG TAB PO SCH (21:24)
[2018-11-26] MEDS: INSULIN ASPART 100 UNITS/ML 3 ML PEN SC SCH (21:28)
[2018-11-26] MEDS: INSULIN GLARGINE SOLOSTAR 100 UNITS/ML 3 ML PEN SC SCH (21:28)
[2018-11-26] MEDS ORDERED: FUROSEMIDE 40 MG in SYRINGE 0 ML IV SCH (22:00)
[2018-11-27] MEDS: LEVOTHYROXINE SODIUM 112 MCG TABLET PO SCH (05:27)
[2018-11-27] MEDS: LEVOTHYROXINE SODIUM 25 MCG TABLET PO SCH (05:27)
[2018-11-27 07:21] LABS: Hematocrit (blood only) 25.1 % (42-52); Hemoglobin 8.2 g/dL (14.0-18.0); Mean Corpuscular Hgb Conc 32.7 g/dL (32-36); Mean Corpuscular Volume 96.2 fL (80-100); Mean Platelet Volume 8.5 fL (7.4-10.4); Platelet Count 243 K/uL (130-400); RDW Coefficient of Variation 15.4 % (11.5-14.5); RDW Standard Deviation 53.6 fL (36.4-46.3); Red Blood Count 2.61 M/uL (4.7-6.1); White Blood Count 5.69 K/uL (4.8-10.8)
[2018-11-27 08:03] LABS: Creatinine Clr Calc Pharmacy 34.1 ml/min; Est GFR (African American) 36.7; Est GFR (Non-African American) 31.6; Potassium 3.8 mmol/L (3.5-5.1)
[2018-11-27] MEDS: INSULIN ASPART 100 UNITS/ML 3 ML PEN SC SCH ×4 (08:14→20:45)
[2018-11-27] MEDS: INSULIN GLARGINE SOLOSTAR 100 UNITS/ML 3 ML PEN SC SCH ×2 (08:15→20:40)
[2018-11-27] MEDS: METOPROLOL TARTRATE 25 MG TAB PO SCH ×2 (08:15→20:41)
[2018-11-27] MEDS: PANTOprazole 40 MG TAB PO SCH (08:16)
[2018-11-27] MEDS: POTASSIUM CHLORIDE 10 MEQ TABCR PO SCH (08:16)
[2018-11-27] MEDS: ASCORBIC ACID 500 MG TAB PO SCH (08:16)
[2018-11-27] MEDS: CHOLECALCIFEROL 1,000 UNITS TAB PO SCH (08:16)
[2018-11-27] MEDS: CITALOPRAM 20 MG TAB PO SCH (08:17)
[2018-11-27] MEDS: FLUTICASONE PROPIONATE NA SPR 16 GM BTL NAE SCH (08:17)
[2018-11-27] MEDS: CALCITRIOL 0.25 MCG CAPSULE PO SCH (08:17)
[2018-11-27] MEDS: TAMSULOSIN HCL 0.4 MG CAP PO SCH (08:17)
[2018-11-27] MEDS: MAGNESIUM OXIDE 400 MG TAB PO SCH (08:18)
[2018-11-27 08:25] LABS: Estimated Average Glucose 120 mg/dl
--- NOTE | 2018-11-27 15:06 | Hospitalist Progress Note ---
Date of Service November 27, 2018 Assessment & Plan (1) Acute blood loss anemia: Improved to 8.2 from 6.5 today after two units of blood overnight. He continues to have gross hematuria as output into his Leone bag. Some improvement in suprapubic tenderness. (2) Hypotension: Improved with volume resuscitation (3) Hematuria: h/o radiation cystitis-defer to Urology (4) Bacteriuria: Urine culture grew nL vilma. Rocephin stopped. (5) Prostate cancer: Gross hematuria persistent with passage of clots noted at the long term. This is in the setting of prostate cancer with a history of radiation cystitis, as well as a recent history of complicated UTI treated with a prolonged course of ciprofloxacin. (6) CKD (chronic kidney disease), stage IV: Currently at baseline. Avoid nephrotoxic substances if able. (7) DM type 2 (diabetes mellitus, type 2): Placed on Lantus twice daily with insulin sliding scale coverage #2 including carb coverage. A1C reflects great control. Inpatient blood sugar at goal with current regimen. (8) Dementia: Pt does not know where he is or why he is here. He is pleasant, and cooperative. He is oriented to self only. Will discuss his baseline with family. (9) DVT prophylaxis: Chemoprophylaxis contraindicated in setting of acute blood loss anemia. SCDs. Full code as discussed with patient on admission Disposition-continue to monitor on telemetry with continued blood loss Angelique Jacinto DO [facility] [address] Hospitalist Subjective The patient is an 83-year-old man with a history of prostate cancer status post radiation with a history of radiation cystitis. During his last admission urology placed a three-way catheter and bladder irrigation was performed and his Leone catheter was subsequently discontinued on 11/08. He continued to have passage of hematuria and blood clots intermittently without evidence of bladder outlet obstruction prior to discharge. He returns today from [facility] where he was undergoing rehabilitation from prior hospital stay. In the setting of continued gross hematuria he developed hypotension and was found to be anemic. He received two units of blood overnight. He reports feeling OK today. History is limited in the setting of dementia. He denies excessive pain and is eating. He has a Leone in place which is still revealing gross hematuria. ROS is limited 2/2 dementia. Physical Exam 2 Vital Signs (Past 24 Hours): Last Vital Signs Temp 36.8 C 01/02/19 15:05 Pulse 86 11/27/18 15:05 Resp 18 11/27/18 15:05 BP 101/64 11/27/18 15:05 Pulse Ox 94 11/27/18 15:05 CONSTITUTIONAL: obese, vitals as above, appears clinically improved today- sitting up in bed, alert, eating independently EYES: normal conjuctivae, no scleral icterus ENT: MMM RESPIRATORY: clear to auscultation bilaterally, no crackles, rales or wheezes, normal respiratory effort CARDIOVASCULAR: irregular rate and irreg rhythm, S1 and 2 heard without murmurs , gallops or rubs, no JVD, no peripheral edema. ABDOMINAL: normal bowel sounds, soft, protuberant abdomen with large pannus, TTP in suprapubic region-improved, nondistended. MUSCULOSKELETAL: generalized weakness, head is normocephalic and atraumatic SKIN: warm and dry, erythroderma to bilateral LE NEUROLOGIC: No facial palsy, no dysarthria. CN 2-12 grossly intact, oriented to self only, pt doesn't know where he is or why he is here. normal speech PSYCHIATRIC: alert cooperative and oriented to person only, euthymic mood. Results & Data Laboratory Results Short CBC 11/27/18 Range/Units 07:09 WBC 5.69 (4.8-10.8) K/uL Hgb 8.2 L (14.0-18.0) g/dL Hct 25.1 L (42-52) % Plt Count 243 (130-400) K/uL BMP 11/27/18 07:09 Sodium 141 Potassium 3.8 D Chloride 106 Carbon Dioxide 29 BUN 38 H Creatinine 1.89 H Glucose 76 Calcium 9.0 Medications Administered Current Inpatient Medications Acetaminophen (Tylenol) 650 mg PO Q4H PRN PRN Reason: Pain or Fever Stop: 12/26/18 19:57 Ascorbic Acid (Vitamin C) 500 mg PO DAILY [facility] Stop: 12/27/18 08:59 Last Admin: 11/27/18 08:16 Dose: 500 mg Calcitriol (Racaltrol) 0.25 mcg PO DAILY [facility] Stop: 12/27/18 08:59 Last Admin: 11/27/18 08:17 Dose: 0.25 mcg Citalopram Hydrobromide (Celexa) 20 mg PO DAILY [facility] Stop: 12/27/18 08:59 Last Admin: 11/27/18 08:17 Dose: 20 mg Dextrose (Dextrose 50%) 25 - 50 ml IV UD PRN; Protocol PRN Reason: Hypoglycemia Protocol Stop: 12/26/18 19:57 Fluticasone Propionate (Flonase) 2 sprays LAURA DAILY [facility] Stop: 12/27/18 08:59 Last Admin: 11/27/18 08:17 Dose: 2 sprays Glucagon (Glucagen) 1 mg SQ UD PRN; Protocol PRN Reason: Hypoglycemia Protocol Stop: 12/26/18 19:57 Glucose (Glucose 40%) 15 - 30 gm PO UD PRN; Protocol PRN Reason: Hypoglycemia Protocol Stop: 12/26/18 19:57 Glucose (Dex4 Glucose) 4 - 8 tabs PO UD PRN; Protocol PRN Reason: Hypoglycemia Protocol Stop: 12/26/18 19:57 Sodium Chloride (Nss 250ml) 250 mls @ 15 mls/hr IV .[id number] PRN PRN Reason: For Transfusion Stop: 12/26/18 19:57 Insulin Aspart (Novolog Flexpen) 0 units SC ACHS [facility] Stop: 12/26/18 20:59 Last Admin: 11/27/18 20:45 Dose: Not Given Insulin Glargine (Lantus Solostar Pen) 19 units SC Q12H [facility] Stop: 12/26/18 20:59 Last Admin: 11/27/18 20:40 Dose: 19 units Levothyroxine Sodium (Synthroid) 112 mcg PO DAILYBB [facility] Stop: 12/27/18 06:29 Last Admin: 11/27/18 05:27 Dose: 112 mcg Levothyroxine Sodium (Synthroid) 25 mcg PO DAILYBB [facility] Stop: 12/27/18 06:29 Last Admin: 11/27/18 05:27 Dose: 25 mcg Magnesium Oxide (Mag-Ox) 400 mg PO DAILY [facility] Stop: 12/27/18 08:59 Last Admin: 11/27/18 08:18 Dose: 400 mg Metoprolol Tartrate (Lopressor) 12.5 mg PO BID [facility] Stop: 12/26/18 20:59 Last Admin: 11/27/18 20:41 Dose: 12.5 mg Miconazole Nitrate (Desenex) 1 appln EXT BID [facility] Stop: 12/27/18 20:59 Last Admin: 11/27/18 20:39 Dose: 1 appln Miscellaneous (Carbohydrates For Hypoglycemia) 15 - 30 gm PO UD PRN PRN Reason: Hypoglycemia Treatment Stop: 12/26/18 19:57 Pantoprazole Sodium (Protonix) 40 mg PO DAILY [facility] Stop: 12/27/18 08:59 Last Admin: 11/27/18 08:16 Dose: 40 mg Polyethylene Glycol (Miralax Powder Packet) 17 gm PO DAILY PRN PRN Reason: Constipation Stop: 12/26/18 18:32 Potassium Chloride (Klor-Con M10) 10 meq PO DAILY [facility] Stop: 12/27/18 08:59 Last Admin: 11/27/18 08:16 Dose: 10 meq Simvastatin (Zocor) 20 mg PO HS [facility] Stop: 12/26/18 20:59 Last Admin: 11/27/18 20:42 Dose: 20 mg Tamsulosin HCl (Flomax) 0.4 mg PO DAILY [facility] Stop: 12/27/18 08:59 Last Admin: 11/27/18 08:17 Dose: 0.4 mg Vitamin D (Vitamin D3) 2,000 units PO DAILY [facility] Stop: 12/27/18 08:59 Last Admin: 11/27/18 08:16 Dose: 2,000 units _ (1) Hematuria Glomerular morphologic changes: Hematuria type: gross Qualified Code(s): R31.0 - Gross hematuria (2) DM type 2 (diabetes mellitus, type 2) Chronic kidney disease stage: stage 3 (moderate) Diabetes mellitus complication detail: with chronic kidney disease Diabetes mellitus complication status: with kidney complications Diabetes mellitus rodent exterminator insulin use: unspecified fdc insulin use status Diabetes mellitus macular edema: Diabetic retinopathy severity: Laterality: Proliferative retinopathy type: Qualified Code(s): E11.22 - Type 2 diabetes mellitus with diabetic chronic kidney disease; N18.3 - Chronic kidney disease, stage 3 ( moderate) (3) Hypotension Hypotension type: unspecified hypotension type Trimester: Qualified Code(s) : I95.9 - Hypotension, unspecified
[2018-11-27] MEDS ORDERED: cefTRIAXone SODIUM 1,000 MG/50 ML BAG IV SCH (18:00)
[2018-11-27] MEDS: MICONAZOLE NITRATE POWDER 43 GM EXT SCH (20:39)
[2018-11-27] MEDS: SIMVASTATIN 20 MG TAB PO SCH (20:42)
--- NOTE | 2018-11-27 21:40 | Urology Consultation ---
Date of Consultation November 27, 2018 Assessment & Plan (1) Acute blood loss anemia: Patient with severe hematuria and ABLA Long history of issues. Discussed options. Right now bhatti providing drainage but likely also contributing to bleeding. Long history of radiation cystitis with recent admission for same issues. Discussed options shortly. Will need to closely watch Hb and consider fulguration and cystoscopy if Hb continues to drop. Could also consider other agent to control bleeding. High risk for multiple areas of bleeding that would make fulguratin difficult. Other options for radiation cystitis also should be considered such as instillation therapy and hyperbaric oxygen. Since patient has had multiple episode will need to consider intervention to prevent future issues. Will monitor for now. good drainage with minimal clot. Very dark red urine but difficult to determine degree of active bleeding. Tolerating catheter well. Watch H&H and monitor for now. (2) Hematuria: (3) Prostate cancer: History of Present Illness Attending Physician: Angelique Jacinto, History of Present Illness Patient with long history of radiation cystitis and episodes of UTI with hematuria and obstruction. Was admitted approx 1 month ago for similar issues. Currently has catheter in place and draining dark purple urine. No major clots. Patient has significant anemia treated with 2 x pRBC Currently resting comfortably. Patient with significant dementia issues. Currently alert and can give history but poor at recent events. Limited assessment. Allergies Allergy/AdvReac Type Severity Reaction Status Date / Time No Known Allergies Allergy Verified 11/04/18 15:11 Home Medications Home Medications Medication Instructions Recorded Confirmed Type ascorbic acid (vitamin C) 500 mg 500 mg PO DAILY cap 07/23/18 11/26/18 History capsule calcitriol 0.25 mcg capsule 0.25 mcg PO DAILY cap 07/23/18 11/26/18 History citalopram 20 mg tablet 20 mg PO DAILY 07/23/18 11/26/18 History ferrous sulfate 325 mg (65 mg 325 mg PO DAILY tab 07/23/18 11/26/18 History iron) tablet,delayed release fluticasone 50 mcg/actuation nasal 2 sprays INTNAS DAILY 07/23/18 11/26/18 History spray,suspension levothyroxine 137 mcg capsule 137 mcg PO DAILY 07/23/18 11/26/18 History magnesium oxide 400 mg capsule 400 mg PO DAILY cap 07/23/18 11/26/18 History omeprazole 20 mg tablet,delayed 20 mg PO DAILY 07/23/18 11/26/18 History release polyethylene glycol 3350 17 17 gm PO DAILY PRN gm 07/23/18 11/26/18 History gram/dose oral powder tamsulosin 0.4 mg capsule 0.4 mg PO DAILY 07/23/18 11/26/18 History acetaminophen [Tylenol] 650 mg PO Q4 PRN MDD 3g/24hr 09/26/18 11/26/18 History cholecalciferol (vitamin D3) 2,000 unit PO DAILY 09/26/18 11/26/18 History [Vitamin D3] potassium chloride 10 meq PO DAILY 11/04/18 11/26/18 History simvastatin 20 mg PO HS 11/04/18 11/26/18 History torsemide 20 mg PO DAILY 11/04/18 11/26/18 History Lactobacillus acidoph-L.bulgar 1 tab PO TID 11/26/18 11/26/18 History [Floranex] ciprofloxacin HCl [Cipro] 500 mg PO DAILY 11/26/18 11/26/18 History insulin lispro [Humalog U-100 0 units SUBCUT UD PRN 11/26/18 11/26/18 History Insulin] metoprolol tartrate 12.5 mg PO BID 11/26/18 11/26/18 History Patient History Medical History Dyslipidemia (Chronic) Hypothyroidism (Chronic) Prostate cancer (Resolved) Treated with radiation CKD (chronic kidney disease), stage IV (Chronic) Diastolic CHF (Chronic) DM type 2 (diabetes mellitus, type 2) (Chronic) DENIS (obstructive sleep apnea) (Chronic) GERD (gastroesophageal reflux disease) (Chronic) Radiation cystitis (Chronic) Atrial fibrillation (Chronic) Hypertension (Chronic) Hypothyroidism (Chronic) Peripheral venous insufficiency (Chronic) Closed head injury (Resolved) Pleural effusion (Resolved) Chronic diastolic heart failure (Inactive) Cystitis (Inactive) GERD (gastroesophageal reflux disease) (Inactive) History of prostate cancer (Inactive) Secondary hyperparathyroidism (Inactive) Sleep apnea (Inactive) Family History Other Family history non-contributory Social History marital status: / Current Living Situation: Senior Care current occupational status: retired Other Information That Helps Us Care for You: No Feels Safe at Home: Yes Safety Concerns: Feels Safe At This Time Smoking Status: Unknown if ever smoked Hx Alcohol Use: No Hx Substance Use: No Beliefs That Will Affect Care: None Preferred Language: Guinean Communication Ability: Effective Tearer Press Clipping Required: No Review of Systems All reviewed. Limited due to mentation. See HPI for full report. Physical Exam 2 Vital Signs (Past 24 Hours): Last Vital Signs Temp 36.7 C 11/27/18 20:21 Pulse 130 H 11/27/18 20:21 Resp 18 11/27/18 20:21 BP 102/66 11/27/18 20:21 Pulse Ox 94 11/27/18 20:21 Constitutional: + thin; no acute distress and not ill appearing Baseline dementia Eyes: no eyelid abnormality, pupils not fixed and pupils not irregular ENMT: Mouth: no lip abnormality Neck: trachea midline; no tracheal deviation Respiratory: normal respiratory effort; no respiratory distress, no labored breathing and does not use accessory muscles Cardiovascular: Rate/Rhythm: not tachycardic Gastrointestinal (Abdomen): Percussion/Palpation: abdomen nontender, no guarding and no pulsatile mass Musculoskeletal: Head/Neck/Chest: normocephalic and head atraumatic; full ROM of neck Extremities: full ROM of extremities Baseline weakness. Skin: no rashes Neurologic: Baseline dementia. Poor historian of recent events but able to discuss history of radiation cytitist and hematuria. Psychiatric: Orientation: alert Eye Contact: good eye contact Speech: no pressured speech Affect: no labile affect Genitourinary: Bhatti in place draining dark purple/red urine without clots. _ (1) Hematuria Hematuria type: gross Glomerular morphologic changes: Qualified Code(s): R31.0 - Gross hematuria
[2018-11-28] MEDS: LEVOTHYROXINE SODIUM 112 MCG TABLET PO SCH (05:40)
[2018-11-28] MEDS: LEVOTHYROXINE SODIUM 25 MCG TABLET PO SCH (05:40)
[2018-11-28] MEDS: MICONAZOLE NITRATE POWDER 43 GM EXT SCH ×2 (07:42→20:31)
[2018-11-28] MEDS: FLUTICASONE PROPIONATE NA SPR 16 GM BTL NAE SCH (07:42)
[2018-11-28] MEDS: POTASSIUM CHLORIDE 10 MEQ TABCR PO SCH (08:49)
[2018-11-28] MEDS: METOPROLOL TARTRATE 25 MG TAB PO SCH ×2 (08:49→20:31)
[2018-11-28] MEDS: ASCORBIC ACID 500 MG TAB PO SCH (08:49)
[2018-11-28] MEDS: TAMSULOSIN HCL 0.4 MG CAP PO SCH (08:49)
[2018-11-28] MEDS: MAGNESIUM OXIDE 400 MG TAB PO SCH (08:49)
[2018-11-28] MEDS: PANTOprazole 40 MG TAB PO SCH (08:50)
[2018-11-28] MEDS: CITALOPRAM 20 MG TAB PO SCH (08:50)
[2018-11-28] MEDS: CALCITRIOL 0.25 MCG CAPSULE PO SCH (08:50)
[2018-11-28] MEDS: INSULIN GLARGINE SOLOSTAR 100 UNITS/ML 3 ML PEN SC SCH (08:50)
[2018-11-28] MEDS: CHOLECALCIFEROL 1,000 UNITS TAB PO SCH (08:50)
[2018-11-28] MEDS: INSULIN ASPART 100 UNITS/ML 3 ML PEN SC SCH ×4 (09:19→20:32)
[2018-11-28 10:24] LABS: Hematocrit (blood only) 24.5 % (42-52); Mean Corpuscular Hgb Conc 32.7 g/dL (32-36); Mean Corpuscular Volume 97.6 fL (80-100); Mean Platelet Volume 8.4 fL (7.4-10.4); Platelet Count 226 K/uL (130-400); RDW Standard Deviation 53.5 fL (36.4-46.3); Red Blood Count 2.51 M/uL (4.7-6.1); White Blood Count 5.84 K/uL (4.8-10.8)
[2018-11-28 10:45] LABS: BUN Creatinine Ratio 18.8 (10-20); Calcium 8.9 mg/dl (8.5-10.1); Creatinine Clr Calc Pharmacy 34.6 ml/min; Est GFR (African American) 37.4; Est GFR (Non-African American) 32.3; Potassium 3.8 mmol/L (3.5-5.1)
--- NOTE | 2018-11-28 16:13 | Hospitalist Progress Note ---
Date of Service November 28, 2018 Assessment & Plan (1) Acute blood loss anemia: Improved to 8.2 from 6.5 after two units of blood. Persistent gross hematuria as output into his [place] bag. No suprapubic tenderness on exam. Definitive treatment of radiation cystitis or other cause of hematuria per Urology. (2) Hematuria: h/o radiation cystitis-defer to Urology (3) Prostate cancer: Gross hematuria persistent with passage of clots noted at the [facility]. This is in the setting of prostate cancer with a history of radiation cystitis, as well as a recent history of complicated UTI treated with a prolonged course of ciprofloxacin. (4) CKD (chronic kidney disease), stage IV: Currently at baseline. Avoid nephrotoxic substances if able. (5) DM type 2 (diabetes mellitus, type 2): Placed on Lantus twice daily with insulin sliding scale coverage #2 including carb coverage. A1C reflects great control. Some hypoglycemia today. Lantus was stopped. Cont with ISS with carb coverage and monitor for any further hypoglycemic episodes. (6) Dementia: Pt does not know where he is or why he is here. He is pleasant, and cooperative. He is oriented to self only. (7) DVT prophylaxis: Chemoprophylaxis contraindicated in setting of acute blood loss anemia. SCDs. Full code as discussed with patient on admission Disposition-continue to monitor on telemetry with continued blood loss Angelique Jacinto DO [facility] Hospitalist Subjective The patient is an 83-year-old man with a history of prostate cancer status post radiation with a history of radiation cystitis. During his last admission urology placed a three-way catheter and bladder irrigation was performed and his [place] catheter was subsequently discontinued on 11/08. He continued to have passage of hematuria and blood clots intermittently without evidence of bladder outlet obstruction prior to discharge. He returned from [facility] where he was undergoing rehabilitation from prior hospital stay. In the setting of continued gross hematuria he developed hypotension and was found to be anemic. He received two units of blood overnight with improvement in H/H and BP. ROS reveals no acute issues today. He is very pleasant and appears well clinically. He is unsure of his whereabouts or why he is here. Eating independently. Physical Exam 2 Vital Signs (Past 24 Hours): Last Vital Signs Temp 36.6 C 11/28/18 15:07 Pulse 78 11/28/18 15:07 Resp 18 11/28/18 15:07 BP 107/72 11/28/18 15:07 Pulse Ox 96 11/28/18 15:07 CONSTITUTIONAL: obese, vitals as above, appears clinically improved today- sitting up in bed, alert, eating independently EYES: normal conjuctivae, no scleral icterus ENT: MMM RESPIRATORY: clear to auscultation bilaterally, no crackles, rales or wheezes, normal respiratory effort CARDIOVASCULAR: irregular rate and irreg rhythm, S1 and 2 heard without murmurs , gallops or rubs, no JVD, no peripheral edema. ABDOMINAL: normal bowel sounds, soft, protuberant abdomen with large pannus, TTP in suprapubic region-improved, small reducible hernia in this region, abdomen nondistended. MUSCULOSKELETAL: generalized weakness, head is normocephalic and atraumatic SKIN: warm and dry, erythroderma to bilateral LE NEUROLOGIC: No facial palsy, no dysarthria. CN 2-12 grossly intact, oriented to self only, pt doesn't know where he is or why he is here. normal speech PSYCHIATRIC: alert cooperative and oriented to person only, euthymic mood. Results & Data Laboratory Results Short CBC 11/28/18 Range/Units 10:08 WBC 5.84 (4.8-10.8) K/uL Hgb 8.0 L (14.0-18.0) g/dL Hct 24.5 L (42-52) % Plt Count 226 (130-400) K/uL BMP 11/28/18 10:08 Sodium 143 Potassium 3.8 Chloride 109 H Carbon Dioxide 29 BUN 35 H Creatinine 1.86 H Glucose 78 Calcium 8.9 Medications Administered Current Inpatient Medications Acetaminophen (Tylenol) 650 mg PO Q4H PRN PRN Reason: Pain or Fever Stop: 12/26/18 19:57 Ascorbic Acid (Vitamin C) 500 mg PO DAILY [facility] Stop: 12/27/18 08:59 Last Admin: 11/28/18 08:49 Dose: 500 mg Calcitriol (Racaltrol) 0.25 mcg PO DAILY [facility] Stop: 12/27/18 08:59 Last Admin: 11/28/18 08:50 Dose: 0.25 mcg Citalopram Hydrobromide (Celexa) 20 mg PO DAILY [facility] Stop: 12/27/18 08:59 Last Admin: 11/28/18 08:50 Dose: 20 mg Dextrose (Dextrose 50%) 25 - 50 ml IV UD PRN; Protocol PRN Reason: Hypoglycemia Protocol Stop: 12/26/18 19:57 Fluticasone Propionate (Flonase) 2 sprays LAURA DAILY [facility] Stop: 12/27/18 08:59 Last Admin: 11/28/18 07:42 Dose: 2 sprays Glucagon (Glucagen) 1 mg SQ UD PRN; Protocol PRN Reason: Hypoglycemia Protocol Stop: 12/26/18 19:57 Glucose (Glucose 40%) 15 - 30 gm PO UD PRN; Protocol PRN Reason: Hypoglycemia Protocol Stop: 12/26/18 19:57 Glucose (Dex4 Glucose) 4 - 8 tabs PO UD PRN; Protocol PRN Reason: Hypoglycemia Protocol Stop: 12/26/18 19:57 Sodium Chloride (Nss 250ml) 250 mls @ 15 mls/hr IV .[id number] PRN PRN Reason: For Transfusion Stop: 12/26/18 19:57 Insulin Aspart (Novolog Flexpen) 0 units SC ACHS [facility] Stop: 12/26/18 20:59 Last Admin: 11/28/18 20:32 Dose: Not Given [facility]: 12/27/18 06:29 Last Admin: 11/28/18 05:40 Dose: 112 mcg Levothyroxine Sodium (Synthroid) 25 mcg PO DAILYBB [facility] Stop: 12/27/18 06:29 Last Admin: 11/28/18 05:40 Dose: 25 mcg Magnesium Oxide (Mag-Ox) 400 mg PO DAILY [facility] Stop: 12/27/18 08:59 Last Admin: 11/28/18 08:49 Dose: 400 mg Metoprolol Tartrate (Lopressor) 12.5 mg PO BID [facility] Stop: 12/26/18 20:59 Last Admin: 11/28/18 20:31 Dose: 12.5 mg Miconazole Nitrate (Desenex) 1 appln EXT BID [facility] Stop: 12/27/18 20:59 Last Admin: 11/28/18 20:31 Dose: 1 appln Miscellaneous (Carbohydrates For Hypoglycemia) 15 - 30 gm PO UD PRN PRN Reason: Hypoglycemia Treatment Stop: 12/26/18 19:57 Last Admin: 11/28/18 16:33 Dose: 15 gm Pantoprazole Sodium (Protonix) 40 mg PO DAILY [facility] Stop: 12/27/18 08:59 Last Admin: 11/28/18 08:50 Dose: 40 mg Polyethylene Glycol (Miralax Powder Packet) 17 gm PO DAILY PRN PRN Reason: Constipation Stop: 12/26/18 18:32 Potassium Chloride (Klor-Con M10) 10 meq PO DAILY [facility] Stop: 12/27/18 08:59 Last Admin: 11/28/18 08:49 Dose: 10 meq Simvastatin (Zocor) 20 mg PO HS [facility] Stop: 12/26/18 20:59 Last Admin: 11/28/18 20:32 Dose: 20 mg Tamsulosin HCl (Flomax) 0.4 mg PO DAILY [facility] Stop: 12/27/18 08:59 Last Admin: 11/28/18 08:49 Dose: 0.4 mg Vitamin D (Vitamin D3) 2,000 units PO DAILY [facility] Stop: 12/27/18 08:59 Last Admin: 11/28/18 08:50 Dose: 2,000 units _ (1) Hematuria Glomerular morphologic changes: Hematuria type: gross Qualified Code(s): R31.0 - Gross hematuria (2) DM type 2 (diabetes mellitus, type 2) Chronic kidney disease stage: stage 3 (moderate) Diabetes mellitus complication detail: with chronic kidney disease Diabetes mellitus complication status: with kidney complications Diabetes mellitus bill hiker insulin use: unspecified correction insulin use status Diabetes mellitus macular edema: Diabetic retinopathy severity: Laterality: Proliferative retinopathy type: Qualified Code(s): E11.22 - Type 2 diabetes mellitus with diabetic chronic kidney disease; N18.3 - Chronic kidney disease, stage 3 ( moderate)
[2018-11-28] MEDS: CARBOHYDRATES FOR HYPOGLYCEMIA PO PRN ×2 (16:14→16:33)
[2018-11-28] MEDS: SIMVASTATIN 20 MG TAB PO SCH (20:32)
[2018-11-29] MEDS: LEVOTHYROXINE SODIUM 25 MCG TABLET PO SCH (06:03)
[2018-11-29] MEDS: LEVOTHYROXINE SODIUM 112 MCG TABLET PO SCH (06:03)
[2018-11-29 06:41] LABS: Hematocrit (blood only) 26.9 % (42-52); Hemoglobin 8.4 g/dL (14.0-18.0); Mean Corpuscular Hgb Conc 31.2 g/dL (32-36); Mean Corpuscular Volume 98.5 fL (80-100); Mean Platelet Volume 8.4 fL (7.4-10.4); Platelet Count 233 K/uL (130-400); RDW Coefficient of Variation 14.6 % (11.5-14.5); RDW Standard Deviation 52.3 fL (36.4-46.3); Red Blood Count 2.73 M/uL (4.7-6.1); White Blood Count 5.27 K/uL (4.8-10.8)
[2018-11-29 07:27] LABS: BUN Creatinine Ratio 19.4 (10-20); Calcium 8.9 mg/dl (8.5-10.1); Creatinine Clr Calc Pharmacy 38.9 ml/min; Est GFR (African American) 43.2; Est GFR (Non-African American) 37.3; Potassium 4.3 mmol/L (3.5-5.1)
[2018-11-29] MEDS: CARBOHYDRATES FOR HYPOGLYCEMIA PO PRN (07:36)
[2018-11-29] MEDS: CHOLECALCIFEROL 1,000 UNITS TAB PO SCH (07:40)
[2018-11-29] MEDS: CALCITRIOL 0.25 MCG CAPSULE PO SCH (07:40)
[2018-11-29] MEDS: CITALOPRAM 20 MG TAB PO SCH (07:40)
[2018-11-29] MEDS: POTASSIUM CHLORIDE 10 MEQ TABCR PO SCH (07:41)
[2018-11-29] MEDS: PANTOprazole 40 MG TAB PO SCH (07:41)
[2018-11-29] MEDS: METOPROLOL TARTRATE 25 MG TAB PO SCH ×2 (07:41→20:06)
[2018-11-29] MEDS: TAMSULOSIN HCL 0.4 MG CAP PO SCH (07:41)
[2018-11-29] MEDS: MAGNESIUM OXIDE 400 MG TAB PO SCH (07:42)
[2018-11-29] MEDS: MICONAZOLE NITRATE POWDER 43 GM EXT SCH ×2 (07:42→20:06)
[2018-11-29] MEDS: ASCORBIC ACID 500 MG TAB PO SCH (07:42)
[2018-11-29] MEDS: FLUTICASONE PROPIONATE NA SPR 16 GM BTL NAE SCH (07:42)
[2018-11-29] MEDS: INSULIN ASPART 100 UNITS/ML 3 ML PEN SC SCH (08:39)
--- NOTE | 2018-11-29 12:11 | Urology Progress Note ---
Date of Service November 29, 2018 Assessment & Plan (1) Acute blood loss anemia: Will continue observation, had cleared but now back to significant hematuria. Will need to monitor Hb. If severe change, may need intervention with instillation, irrigation, or cystoscopy and fulguration, however, would hold off unless absolutely necessary. Continue supportive care. Will need to consider half-way options to prevent episode of GH with ABLA secondary to radiation cystitis. Patient with severe hematuria and ABLA Long history of issues. Discussed options. Right now bhatti providing drainage but likely also contributing to bleeding. Long history of radiation cystitis with recent admission for same issues. Discussed options shortly. Will need to closely watch Hb and consider fulguration and cystoscopy if Hb continues to drop. Could also consider other agent to control bleeding. High risk for multiple areas of bleeding that would make fulguratin difficult. Other options for radiation cystitis also should be considered such as instillation therapy and hyperbaric oxygen. Since patient has had multiple episode will need to consider intervention to prevent future issues. Will monitor for now. good drainage with minimal clot. Very dark red urine but difficult to determine degree of active bleeding. Tolerating catheter well. Watch H&H and monitor for now. (2) Hematuria: (3) Prostate cancer: Subjective Resting comfortably. Urine had cleared to dark yellow this AM but around noon turned back to dark red/purple. Patient Hb had been 8.4 this am. No severe issues. Tolerate catheter. Severe dementia, but no agitation. Has been moving bowels. Poor mobility. The patient is an 83-year-old man with a history of prostate cancer status post radiation with a history of radiation cystitis. During his last admission urology placed a three-way catheter and bladder irrigation was performed and his Bhatti catheter was subsequently discontinued on 11/08. He continued to have passage of hematuria and blood clots intermittently without evidence of bladder outlet obstruction prior to discharge. He returned from [facility] where he was undergoing rehabilitation from prior hospital stay. In the setting of continued gross hematuria he developed hypotension and was found to be anemic. He received two units of blood overnight with improvement in H/H and BP. ROS reveals no acute issues today. He is very pleasant and appears well clinically. He is unsure of his whereabouts or why he is here. Eating independently. Physical Exam 2 Vital Signs (Past 24 Hours): Last Vital Signs Temp 36.5 C 01/04/19 11:42 Pulse 84 11/29/18 11:42 Resp 18 11/29/18 11:42 BP 114/58 L 11/29/18 11:42 Pulse Ox 94 11/29/18 11:42 Constitutional: + thin; no acute distress and not ill appearing Eyes: no eyelid abnormality, pupils not fixed and pupils not irregular ENMT: Mouth: no lip abnormality Neck: trachea midline; no tracheal deviation Respiratory: normal respiratory effort; no respiratory distress, no labored breathing and does not use accessory muscles Cardiovascular: Rate/Rhythm: not tachycardic Gastrointestinal (Abdomen): Percussion/Palpation: abdomen nontender, no guarding and no pulsatile mass Musculoskeletal: Head/Neck/Chest: normocephalic and head atraumatic; full ROM of neck Extremities: full ROM of extremities Skin: no rashes Psychiatric: Orientation: alert Eye Contact: good eye contact Speech: no pressured speech Affect: no labile affect _ (1) Hematuria Hematuria type: gross Glomerular morphologic changes: Qualified Code(s): R31.0 - Gross hematuria
--- NOTE | 2018-11-29 12:16 | Hospitalist Progress Note ---
Date of Service November 29, 2018 Assessment & Plan (1) Acute blood loss anemia: Improved to 8.2 from 6.5 after two units of blood. Persistent gross hematuria as output into his [place] bag. H/H stable. No suprapubic tenderness on exam. Definitive treatment of radiation cystitis or other cause of hematuria per Urology. (2) Hematuria: h/o radiation cystitis-defer to Urology (3) Prostate cancer: Gross hematuria persistent with passage of clots noted at the skilled nursing. This is in the setting of prostate cancer with a history of radiation cystitis, as well as a recent history of complicated UTI treated with a prolonged course of ciprofloxacin. (4) CKD (chronic kidney disease), stage IV: Currently at baseline. Avoid nephrotoxic substances if able. (5) DM type 2 (diabetes mellitus, type 2): Persistent hypoglycemia; removed all insulin from profile. Trend glucose. (6) Dementia: Pt does not know where he is or why he is here. He is pleasant, and cooperative. He is oriented to self only. (7) DVT prophylaxis: Chemoprophylaxis contraindicated in setting of acute blood loss anemia. SCDs. Full code as discussed with patient on admission Disposition-[facility] Hospitalist Subjective Doing well Persistent gross hematuria into [place] bag ROS negative, however, patient has dementia Physical Exam 2 Vital Signs (Past 24 Hours): Last Vital Signs Temp 36.5 C 11/29/18 11:42 Pulse 84 11/29/18 11:42 Resp 18 11/29/18 11:42 BP 114/58 L 11/29/18 11:42 Pulse Ox 94 11/29/18 11:42 CONSTITUTIONAL: obese, vitals as above, appears clinically improved today- sitting up in bed, alert, eating independently EYES: normal conjuctivae, no scleral icterus ENT: MMM RESPIRATORY: clear to auscultation bilaterally, no crackles, rales or wheezes, normal respiratory effort CARDIOVASCULAR: irregular rate and irreg rhythm, S1 and 2 heard without murmurs , gallops or rubs, no JVD, no peripheral edema. ABDOMINAL: normal bowel sounds, soft, protuberant abdomen with large pannus, nontender, small reducible hernia in this region, abdomen nondistended. MUSCULOSKELETAL: generalized weakness, head is normocephalic and atraumatic SKIN: warm and dry, erythroderma to bilateral LE NEUROLOGIC: No facial palsy, no dysarthria. CN 2-12 grossly intact, oriented to self only, pt doesn't know where he is or why he is here. normal speech PSYCHIATRIC: alert cooperative and oriented to person only, euthymic mood. Results & Data Laboratory Results Short CBC 11/29/18 Range/Units 06:32 WBC 5.27 (4.8-10.8) K/uL Hgb 8.4 L (14.0-18.0) g/dL Hct 26.9 L (42-52) % Plt Count 233 (130-400) K/uL BMP 11/29/18 06:32 Sodium 141 Potassium 4.3 Chloride 109 H Carbon Dioxide 30 BUN 32 H Creatinine 1.65 H Glucose 51 L* Calcium 8.9 Medications Administered Current Inpatient Medications Acetaminophen (Tylenol) 650 mg PO Q4H PRN PRN Reason: Pain or Fever Stop: 12/26/18 19:57 Ascorbic Acid (Vitamin C) 500 mg PO DAILY [facility] Stop: 12/27/18 08:59 Last Admin: 11/29/18 07:42 Dose: 500 mg Calcitriol (Racaltrol) 0.25 mcg PO DAILY [facility] Stop: 12/27/18 08:59 Last Admin: 11/29/18 07:40 Dose: 0.25 mcg Citalopram Hydrobromide (Celexa) 20 mg PO DAILY [facility] Stop: 12/27/18 08:59 Last Admin: 11/29/18 07:40 Dose: 20 mg Dextrose (Dextrose 50%) 25 - 50 ml IV UD PRN; Protocol PRN Reason: Hypoglycemia Protocol Stop: 12/26/18 19:57 Fluticasone Propionate (Flonase) 2 sprays LAURA DAILY [facility] Stop: 12/27/18 08:59 Last Admin: 11/29/18 07:42 Dose: 2 sprays Glucagon (Glucagen) 1 mg SQ UD PRN; Protocol PRN Reason: Hypoglycemia Protocol Stop: 12/26/18 19:57 Glucose (Glucose 40%) 15 - 30 gm PO UD PRN; Protocol PRN Reason: Hypoglycemia Protocol Stop: 12/26/18 19:57 Glucose (Dex4 Glucose) 4 - 8 tabs PO UD PRN; Protocol PRN Reason: Hypoglycemia Protocol Stop: 12/26/18 19:57 Sodium Chloride (Nss 250ml) 250 mls @ 15 mls/hr IV .[id number] PRN PRN Reason: For Transfusion Stop: 12/26/18 19:57 Levothyroxine Sodium (Synthroid) 112 mcg PO DAILYBB [facility] Stop: 12/27/18 06:29 Last Admin: 11/29/18 06:03 Dose: 112 mcg Levothyroxine Sodium (Synthroid) 25 mcg PO DAILYBB [facility] Stop: 12/27/18 06:29 Last Admin: 11/29/18 06:03 Dose: 25 mcg Magnesium Oxide (Mag-Ox) 400 mg PO DAILY [facility] Stop: 12/27/18 08:59 Last Admin: 11/29/18 07:42 Dose: 400 mg Metoprolol Tartrate (Lopressor) 12.5 mg PO BID [facility] Stop: 12/26/18 20:59 Last Admin: 11/29/18 20:06 Dose: 12.5 mg Miconazole Nitrate (Desenex) 1 appln EXT BID [facility] Stop: 12/27/18 20:59 Last Admin: 11/29/18 20:06 Dose: 1 appln Miscellaneous (Carbohydrates For Hypoglycemia) 15 - 30 gm PO UD PRN PRN Reason: Hypoglycemia Treatment Stop: 12/26/18 19:57 Last Admin: 11/29/18 07:36 Dose: 15 gm Pantoprazole Sodium (Protonix) 40 mg PO DAILY [facility] Stop: 12/27/18 08:59 Last Admin: 11/29/18 07:41 Dose: 40 mg Polyethylene Glycol (Miralax Powder Packet) 17 gm PO DAILY PRN PRN Reason: Constipation Stop: 12/26/18 18:32 Potassium Chloride (Klor-Con M10) 10 meq PO DAILY [facility] Stop: 12/27/18 08:59 Last Admin: 11/29/18 07:41 Dose: 10 meq Simvastatin (Zocor) 20 mg PO HS [facility] Stop: 12/26/18 20:59 Last Admin: 11/29/18 20:06 Dose: 20 mg Tamsulosin HCl (Flomax) 0.4 mg PO DAILY [facility] Stop: 12/27/18 08:59 Last Admin: 11/29/18 07:41 Dose: 0.4 mg Vitamin D (Vitamin D3) 2,000 units PO DAILY [facility] Stop: 12/27/18 08:59 Last Admin: 11/29/18 07:40 Dose: 2,000 units _ (1) Hematuria Glomerular morphologic changes: Hematuria type: gross Qualified Code(s): R31.0 - Gross hematuria (2) DM type 2 (diabetes mellitus, type 2) Chronic kidney disease stage: stage 3 (moderate) Diabetes mellitus complication detail: with chronic kidney disease Diabetes mellitus complication status: with kidney complications Diabetes mellitus chcf insulin use: unspecified [facility]cf insulin use status Diabetes mellitus macular edema: Diabetic retinopathy severity: Laterality: Proliferative retinopathy type: Qualified Code(s): E11.22 - Type 2 diabetes mellitus with diabetic chronic kidney disease; N18.3 - Chronic kidney disease, stage 3 ( moderate)
[2018-11-29] MEDS: SIMVASTATIN 20 MG TAB PO SCH (20:06)
[2018-11-30] MEDS: LEVOTHYROXINE SODIUM 112 MCG TABLET PO SCH (06:14)
[2018-11-30] MEDS: LEVOTHYROXINE SODIUM 25 MCG TABLET PO SCH (06:15)
[2018-11-30] MEDS: CITALOPRAM 20 MG TAB PO SCH (07:46)
[2018-11-30] MEDS: MICONAZOLE NITRATE POWDER 43 GM EXT SCH ×2 (07:46→20:00)
[2018-11-30] MEDS: TAMSULOSIN HCL 0.4 MG CAP PO SCH (07:46)
[2018-11-30] MEDS: FLUTICASONE PROPIONATE NA SPR 16 GM BTL NAE SCH (07:46)
[2018-11-30] MEDS: POTASSIUM CHLORIDE 10 MEQ TABCR PO SCH (07:47)
[2018-11-30] MEDS: CHOLECALCIFEROL 1,000 UNITS TAB PO SCH (07:47)
[2018-11-30] MEDS: ASCORBIC ACID 500 MG TAB PO SCH (07:47)
[2018-11-30] MEDS: PANTOprazole 40 MG TAB PO SCH (07:47)
[2018-11-30] MEDS: CALCITRIOL 0.25 MCG CAPSULE PO SCH (07:47)
[2018-11-30] MEDS: MAGNESIUM OXIDE 400 MG TAB PO SCH (07:47)
[2018-11-30] MEDS: METOPROLOL TARTRATE 25 MG TAB PO SCH ×2 (07:48→20:01)
[2018-11-30] MEDS: INSULIN ASPART 100 UNITS/ML 3 ML PEN SC SCH ×4 (07:53→20:03)
--- NOTE | 2018-11-30 10:40 | Urology Progress Note ---
Date of Service November 30, 2018 Assessment & Plan (1) Radiation cystitis: Gross hematuria on arrival Hgb has stabilized after transfusion urine is clear now - leave catheter until time for d/c home, then voiding trial is appropriate - as long as urine remains clear, no further interventions needed Please call if further issues/bleeding during the hospitlalization Subjective reports he is feeling very well - bhatti remains in place - no issues overnight Physical Exam 2 Vital Signs (Past 24 Hours): Last Vital Signs Temp 36.8 C 11/30/18 08:00 Pulse 76 11/30/18 08:00 Resp 18 11/30/18 08:00 BP 118/65 11/30/18 08:00 Pulse Ox 95 11/30/18 08:00 Physical Exam: NAD AAOx3 no resp distress abd soft - obese urine clear in bag and tubing
--- NOTE | 2018-11-30 14:35 | Hospitalist Progress Note ---
Date of Service November 30, 2018 Assessment & Plan (1) Acute blood loss anemia: Improved to 8.2 from 6.5 after two units of blood. GRoss hematuria resolved per Urology. Plan to remove the Leone and allow him to return to [facility] for ongoing rehabilitation. Will have them check a CBC in one week. No further Urological intervention is necessary at this time. (2) Hematuria: h/o radiation cystitis-resolving/resolved. Defer definitive managemet to Urology (3) Prostate cancer: s/p XRT with radiation cystitis history (4) CKD (chronic kidney disease), stage IV: Currently at baseline. Avoid nephrotoxic substances if able. (5) DM type 2 (diabetes mellitus, type 2): Persistent hypoglycemia; removed all insulin from profile. Glocose trend reflects numbers at goal. Correction factor is on if he goes too high. (6) Dementia: Disoriented to place and time. He also appears to be having some hallucinations as he is talking about putting his coat on (which isn'nt there) and gathering up the sheets on the floor in order to go somewhere. Will be good to get him back to a familiar environment at [facility] tomorrow. (7) DVT prophylaxis: Chemoprophylaxis contraindicated in setting of acute blood loss anemia. SCDs. Full code as discussed with patient on admission Disposition-transfer to Med/Surg Angelique Jacinto DO [facility] Hospitalist Subjective Gross hematuria resolving per Uroogy, Leone removed in preparation to send him home tomorrow. ROS negative, however, patient has dementia and is not a reliable historian. He denies any pain, he is tolerating PO. Physical Exam 2 Vital Signs (Past 24 Hours): Last Vital Signs Temp 36.8 C 11/30/18 08:00 Pulse 76 11/30/18 08:00 Resp 18 11/30/18 08:00 BP 118/65 11/30/18 08:00 Pulse Ox 95 11/30/18 08:00 CONSTITUTIONAL: obese, vitals as above, appears clinically well although some possible delirium is present EYES: normal conjuctivae, no scleral icterus ENT: MMM RESPIRATORY: clear to auscultation bilaterally, no crackles, rales or wheezes, normal respiratory effort CARDIOVASCULAR: irregular rate and irreg rhythm, S1 and 2 heard without murmurs , gallops or rubs, no JVD, no peripheral edema. ABDOMINAL: normal bowel sounds, soft, protuberant abdomen with large pannus, nontender, small reducible hernia in this region, abdomen nondistended. MUSCULOSKELETAL: generalized weakness, head is normocephalic and atraumatic SKIN: warm and dry, erythroderma to bilateral LE-no acute changes. NEUROLOGIC: No facial palsy, no dysarthria. CN 2-12 grossly intact, oriented to self only, pt doesn't know where he is or why he is here. normal speech PSYCHIATRIC: alert cooperative and oriented to person only, euthymic mood. Results & Data Laboratory Results Short CBC 11/26/18 11/26/18 11/26/18 Range/Units 16:41 16:41 16:41 RBC 2.12 L (4.7-6.1) M/uL MCV 100.0 (80-100) fL MCH 30.7 (25-34) pg MCHC 30.7 L (32-36) g/dL RDW Std Deviation 50.1 H (36.4-46.3) fL RDW Coeff of Yue 13.9 (11.5-14.5) % MPV 9.1 (7.4-10.4) fL Immature Gran % (Auto) 0.2 % Neut % (Auto) 73.3 % Lymph % (Auto) 14.2 % Moca % (Auto) 7.0 % Eos % (Auto) 5.0 % Baso % (Auto) 0.3 % Immature Gran # (Auto) 0.01 (0.00-0.02) K/uL Neut # (Auto) 4.71 (1.4-6.5) K/uL Lymph # (Auto) 0.91 L (1.2-3.4) K/uL Moca # (Auto) 0.45 (0.11-0.59) K/uL Eos # (Auto) 0.32 (0-0.5) K/uL Baso # (Auto) 0.02 (0-0.2) K/uL Hypochromasia Present PT 11.4 (9.0-12.0) Seconds INR 1.1 (0.9-1.1) APTT 26.6 (21.0-31.0) Seconds PTT Ratio 1.0 Sodium 140 (136-145) mmol/L Potassium 4.5 (3.5-5.1) mmol/L Chloride 105 (98-107) mmol/L Carbon Dioxide 30 (21-32) mmol/L Anion Gap 5.0 (3-11) BUN 41 H (7-18) mg/dl Creatinine 2.08 H (0.6-1.4) mg/dl Est Cr Clr Drug Dosing 29.8 ml/min Est GFR ( Amer) 32.7 Est GFR (Non-Af Amer) 28.2 BUN/Creatinine Ratio 19.7 (10-20) Glucose 143 H (70-99) mg/dl POC Glucose (70-99) Estimat Average Glucose mg/dl Hemoglobin A1c (4.5-5.6) % Calcium 8.6 (8.5-10.1) mg/dl Total Bilirubin 0.2 (0.2-1) mg/dl AST 10 L (15-37) U/L ALT 8 L (12-78) U/L Alkaline Phosphatase 50 (45-117) U/L Total Protein 6.1 L (6.4-8.2) gm/dl Albumin 1.9 L (3.4-5.0) gm/dl Globulin 4.2 H (2.5-4.0) gm/dl Albumin/Globulin Ratio 0.5 L (0.9-2) Lipase 86 (73-393) U/L Specimen Hemolysis Urine Color Urine Appearance (Clear) Urine pH (4.5-7.5) Ur Specific Dixon (1.000-1.060) Urine Protein (Negative) Urine Glucose (UA) (Negative) Urine Ketones (Negative) Urine Blood (Negative) Urine Nitrite (Negative) Urine Bilirubin (Negative) Urine Urobilinogen (Negative) Ur Leukocyte Esterase (Negative) Urine RBC (0-4) /hpf Urine WBC (0-5) /hpf Ur Epithelial Cells (0-5) /lpf Calcium Oxalate Crystal (None Prsent) Urine Bacteria (Negative) Nasal Screen MRSA (PCR) (Negative) Blood Type Antibody Screen Crossmatch 11/26/18 11/26/18 11/26/18 Range/Units 16:41 16:59 20:00 RBC (4.7-6.1) M/uL MCV (80-100) fL MCH (25-34) pg MCHC (32-36) g/dL RDW Std Deviation (36.4-46.3) fL RDW Coeff of Yue (11.5-14.5) % MPV (7.4-10.4) fL Immature Gran % (Auto) % Neut % (Auto) % Lymph % (Auto) % Moca % (Auto) % Eos % (Auto) % Baso % (Auto) % Immature Gran # (Auto) (0.00-0.02) K/uL Neut # (Auto) (1.4-6.5) K/uL Lymph # (Auto) (1.2-3.4) K/uL Moca # (Auto) (0.11-0.59) K/uL Eos # (Auto) (0-0.5) K/uL Baso # (Auto) (0-0.2) K/uL Hypochromasia PT (9.0-12.0) Seconds INR (0.9-1.1) APTT (21.0-31.0) Seconds PTT Ratio Sodium (136-145) mmol/L Potassium (3.5-5.1) mmol/L Chloride (98-107) mmol/L Carbon Dioxide (21-32) mmol/L Anion Gap (3-11) BUN (7-18) mg/dl Creatinine (0.6-1.4) mg/dl Est Cr Clr Drug Dosing ml/min Est GFR ( Amer) Est GFR (Non-Af Amer) BUN/Creatinine Ratio (10-20) Glucose (70-99) mg/dl POC Glucose (70-99) Estimat Average Glucose mg/dl Hemoglobin A1c (4.5-5.6) % Calcium (8.5-10.1) mg/dl Total Bilirubin (0.2-1) mg/dl AST (15-37) U/L ALT (12-78) U/L Alkaline Phosphatase (45-117) U/L Total Protein (6.4-8.2) gm/dl Albumin (3.4-5.0) gm/dl Globulin (2.5-4.0) gm/dl Albumin/Globulin Ratio (0.9-2) Lipase (73-393) U/L Specimen Hemolysis Urine Color Red Urine Appearance Slightly Cloudy H (Clear) Urine pH (4.5-7.5) Ur Specific Dixon 1.011 (1.000-1.060) Urine Protein (Negative) Urine Glucose (UA) (Negative) Urine Ketones (Negative) Urine Blood (Negative) Urine Nitrite (Negative) Urine Bilirubin (Negative) Urine Urobilinogen (Negative) Ur Leukocyte Esterase (Negative) Urine RBC >30 H (0-4) /hpf Urine WBC >30 H (0-5) /hpf Ur Epithelial Cells 10-20 H (0-5) /lpf Calcium Oxalate Crystal Present H (None Prsent) Urine Bacteria 2+ H (Negative) Nasal Screen MRSA (PCR) Negative (Negative) Blood Type AB Positive Antibody Screen NEGATIVE Crossmatch See Detail 11/26/18 11/27/18 11/27/18 Range/Units 20:12 07:09 07:09 RBC 2.61 L (4.7-6.1) M/uL MCV 96.2 (80-100) fL MCH 31.4 (25-34) pg MCHC 32.7 (32-36) g/dL RDW Std Deviation 53.6 H (36.4-46.3) fL RDW Coeff of Yue 15.4 H (11.5-14.5) % MPV 8.5 (7.4-10.4) fL Immature Gran % (Auto) % Neut % (Auto) % Lymph % (Auto) % Moca % (Auto) % Eos % (Auto) % Baso % (Auto) % Immature Gran # (Auto) (0.00-0.02) K/uL Neut # (Auto) (1.4-6.5) K/uL Lymph # (Auto) (1.2-3.4) K/uL Moca # (Auto) (0.11-0.59) K/uL Eos # (Auto) (0-0.5) K/uL Baso # (Auto) (0-0.2) K/uL Hypochromasia PT (9.0-12.0) Seconds INR (0.9-1.1) APTT (21.0-31.0) Seconds PTT Ratio Sodium 141 (136-145) mmol/L Potassium 3.8 D (3.5-5.1) mmol/L Chloride 106 (98-107) mmol/L Carbon Dioxide 29 (21-32) mmol/L Anion Gap 7.0 (3-11) BUN 38 H (7-18) mg/dl Creatinine 1.89 H (0.6-1.4) mg/dl Est Cr Clr Drug Dosing 34.1 ml/min Est GFR ( Amer) 36.7 Est GFR (Non-Af Amer) 31.6 BUN/Creatinine Ratio 20.0 (10-20) Glucose 76 (70-99) mg/dl POC Glucose 129 H (70-99) Estimat Average Glucose mg/dl Hemoglobin A1c (4.5-5.6) % Calcium 9.0 (8.5-10.1) mg/dl Total Bilirubin (0.2-1) mg/dl AST (15-37) U/L ALT (12-78) U/L Alkaline Phosphatase (45-117) U/L Total Protein (6.4-8.2) gm/dl Albumin (3.4-5.0) gm/dl Globulin (2.5-4.0) gm/dl Albumin/Globulin Ratio (0.9-2) Lipase (73-393) U/L Specimen Hemolysis Urine Color Urine Appearance (Clear) Urine pH (4.5-7.5) Ur Specific Dixon (1.000-1.060) Urine Protein (Negative) Urine Glucose (UA) (Negative) Urine Ketones (Negative) Urine Blood (Negative) Urine Nitrite (Negative) Urine Bilirubin (Negative) Urine Urobilinogen (Negative) Ur Leukocyte Esterase (Negative) Urine RBC (0-4) /hpf Urine WBC (0-5) /hpf Ur Epithelial Cells (0-5) /lpf Calcium Oxalate Crystal (None Prsent) Urine Bacteria (Negative) Nasal Screen MRSA (PCR) (Negative) Blood Type Antibody Screen Crossmatch 11/27/18 11/27/18 11/27/18 Range/Units 07:09 07:11 11:31 RBC (4.7-6.1) M/uL MCV (80-100) fL MCH (25-34) pg MCHC (32-36) g/dL RDW Std Deviation (36.4-46.3) fL RDW Coeff of Yue (11.5-14.5) % MPV (7.4-10.4) fL Immature Gran % (Auto) % Neut % (Auto) % Lymph % (Auto) % Moca % (Auto) % Eos % (Auto) % Baso % (Auto) % Immature Gran # (Auto) (0.00-0.02) K/uL Neut # (Auto) (1.4-6.5) K/uL Lymph # (Auto) (1.2-3.4) K/uL Moca # (Auto) (0.11-0.59) K/uL Eos # (Auto) (0-0.5) K/uL Baso # (Auto) (0-0.2) K/uL Hypochromasia PT (9.0-12.0) Seconds INR (0.9-1.1) APTT (21.0-31.0) Seconds PTT Ratio Sodium (136-145) mmol/L Potassium (3.5-5.1) mmol/L Chloride (98-107) mmol/L Carbon Dioxide (21-32) mmol/L Anion Gap (3-11) BUN (7-18) mg/dl Creatinine (0.6-1.4) mg/dl Est Cr Clr Drug Dosing ml/min Est GFR ( Amer) Est GFR (Non-Af Amer) BUN/Creatinine Ratio (10-20) Glucose (70-99) mg/dl POC Glucose 89 103 H (70-99) Estimat Average Glucose 120 mg/dl Hemoglobin A1c 5.8 H (4.5-5.6) % Calcium (8.5-10.1) mg/dl Total Bilirubin (0.2-1) mg/dl AST (15-37) U/L ALT (12-78) U/L Alkaline Phosphatase (45-117) U/L Total Protein (6.4-8.2) gm/dl Albumin (3.4-5.0) gm/dl Globulin (2.5-4.0) gm/dl Albumin/Globulin Ratio (0.9-2) Lipase (73-393) U/L Specimen Hemolysis Urine Color Urine Appearance (Clear) Urine pH (4.5-7.5) Ur Specific Dixon (1.000-1.060) Urine Protein (Negative) Urine Glucose (UA) (Negative) Urine Ketones (Negative) Urine Blood (Negative) Urine Nitrite (Negative) Urine Bilirubin (Negative) Urine Urobilinogen (Negative) Ur Leukocyte Esterase (Negative) Urine RBC (0-4) /hpf Urine WBC (0-5) /hpf Ur Epithelial Cells (0-5) /lpf Calcium Oxalate Crystal (None Prsent) Urine Bacteria (Negative) Nasal Screen MRSA (PCR) (Negative) Blood Type Antibody Screen Crossmatch 11/27/18 11/27/18 11/28/18 Range/Units 16:29 20:45 07:36 RBC (4.7-6.1) M/uL MCV (80-100) fL MCH (25-34) pg MCHC (32-36) g/dL RDW Std Deviation (36.4-46.3) fL RDW Coeff of Yue (11.5-14.5) % MPV (7.4-10.4) fL Immature Gran % (Auto) % Neut % (Auto) % Lymph % (Auto) % Moca % (Auto) % Eos % (Auto) % Baso % (Auto) % Immature Gran # (Auto) (0.00-0.02) K/uL Neut # (Auto) (1.4-6.5) K/uL Lymph # (Auto) (1.2-3.4) K/uL Moca # (Auto) (0.11-0.59) K/uL Eos # (Auto) (0-0.5) K/uL Baso # (Auto) (0-0.2) K/uL Hypochromasia PT (9.0-12.0) Seconds INR (0.9-1.1) APTT (21.0-31.0) Seconds PTT Ratio Sodium (136-145) mmol/L Potassium (3.5-5.1) mmol/L Chloride (98-107) mmol/L Carbon Dioxide (21-32) mmol/L Anion Gap (3-11) BUN (7-18) mg/dl Creatinine (0.6-1.4) mg/dl Est Cr Clr Drug Dosing ml/min Est GFR ( Amer) Est GFR (Non-Af Amer) BUN/Creatinine Ratio (10-20) Glucose (70-99) mg/dl POC Glucose 75 80 139 H (70-99) Estimat Average Glucose mg/dl Hemoglobin A1c (4.5-5.6) % Calcium (8.5-10.1) mg/dl Total Bilirubin (0.2-1) mg/dl AST (15-37) U/L ALT (12-78) U/L Alkaline Phosphatase (45-117) U/L Total Protein (6.4-8.2) gm/dl Albumin (3.4-5.0) gm/dl Globulin (2.5-4.0) gm/dl Albumin/Globulin Ratio (0.9-2) Lipase (73-393) U/L Specimen Hemolysis Urine Color Urine Appearance (Clear) Urine pH (4.5-7.5) Ur Specific Dixon (1.000-1.060) Urine Protein (Negative) Urine Glucose (UA) (Negative) Urine Ketones (Negative) Urine Blood (Negative) Urine Nitrite (Negative) Urine Bilirubin (Negative) Urine Urobilinogen (Negative) Ur Leukocyte Esterase (Negative) Urine RBC (0-4) /hpf Urine WBC (0-5) /hpf Ur Epithelial Cells (0-5) /lpf Calcium Oxalate Crystal (None Prsent) Urine Bacteria (Negative) Nasal Screen MRSA (PCR) (Negative) Blood Type Antibody Screen Crossmatch 11/28/18 11/28/18 11/28/18 Range/Units 10:08 10:08 11:17 RBC 2.51 L (4.7-6.1) M/uL MCV 97.6 (80-100) fL MCH 31.9 (25-34) pg MCHC 32.7 (32-36) g/dL RDW Std Deviation 53.5 H (36.4-46.3) fL RDW Coeff of Yue 15.0 H (11.5-14.5) % MPV 8.4 (7.4-10.4) fL Immature Gran % (Auto) % Neut % (Auto) % Lymph % (Auto) % Moca % (Auto) % Eos % (Auto) % Baso % (Auto) % Immature Gran # (Auto) (0.00-0.02) K/uL Neut # (Auto) (1.4-6.5) K/uL Lymph # (Auto) (1.2-3.4) K/uL Moca # (Auto) (0.11-0.59) K/uL Eos # (Auto) (0-0.5) K/uL Baso # (Auto) (0-0.2) K/uL Hypochromasia PT (9.0-12.0) Seconds INR (0.9-1.1) APTT (21.0-31.0) Seconds PTT Ratio Sodium 143 (136-145) mmol/L Potassium 3.8 (3.5-5.1) mmol/L Chloride 109 H (98-107) mmol/L Carbon Dioxide 29 (21-32) mmol/L Anion Gap 5.0 (3-11) BUN 35 H (7-18) mg/dl Creatinine 1.86 H (0.6-1.4) mg/dl Est Cr Clr Drug Dosing 34.6 ml/min Est GFR ( Amer) 37.4 Est GFR (Non-Af Amer) 32.3 BUN/Creatinine Ratio 18.8 (10-20) Glucose 78 (70-99) mg/dl POC Glucose 137 H (70-99) Estimat Average Glucose mg/dl Hemoglobin A1c (4.5-5.6) % Calcium 8.9 (8.5-10.1) mg/dl Total Bilirubin (0.2-1) mg/dl AST (15-37) U/L ALT (12-78) U/L Alkaline Phosphatase (45-117) U/L Total Protein (6.4-8.2) gm/dl Albumin (3.4-5.0) gm/dl Globulin (2.5-4.0) gm/dl Albumin/Globulin Ratio (0.9-2) Lipase (73-393) U/L Specimen Hemolysis Urine Color Urine Appearance (Clear) Urine pH (4.5-7.5) Ur Specific Dixon (1.000-1.060) Urine Protein (Negative) Urine Glucose (UA) (Negative) Urine Ketones (Negative) Urine Blood (Negative) Urine Nitrite (Negative) Urine Bilirubin (Negative) Urine Urobilinogen (Negative) Ur Leukocyte Esterase (Negative) Urine RBC (0-4) /hpf Urine WBC (0-5) /hpf Ur Epithelial Cells (0-5) /lpf Calcium Oxalate Crystal (None Prsent) Urine Bacteria (Negative) Nasal Screen MRSA (PCR) (Negative) Blood Type Antibody Screen Crossmatch 11/28/18 11/28/18 11/28/18 Range/Units 16:11 16:13 16:29 RBC (4.7-6.1) M/uL MCV (80-100) fL MCH (25-34) pg MCHC (32-36) g/dL RDW Std Deviation (36.4-46.3) fL RDW Coeff of Yue (11.5-14.5) % MPV (7.4-10.4) fL Immature Gran % (Auto) % Neut % (Auto) % Lymph % (Auto) % Moca % (Auto) % Eos % (Auto) % Baso % (Auto) % Immature Gran # (Auto) (0.00-0.02) K/uL Neut # (Auto) (1.4-6.5) K/uL Lymph # (Auto) (1.2-3.4) K/uL Moca # (Auto) (0.11-0.59) K/uL Eos # (Auto) (0-0.5) K/uL Baso # (Auto) (0-0.2) K/uL Hypochromasia PT (9.0-12.0) Seconds INR (0.9-1.1) APTT (21.0-31.0) Seconds PTT Ratio Sodium (136-145) mmol/L Potassium (3.5-5.1) mmol/L Chloride (98-107) mmol/L Carbon Dioxide (21-32) mmol/L Anion Gap (3-11) BUN (7-18) mg/dl Creatinine (0.6-1.4) mg/dl Est Cr Clr Drug Dosing ml/min Est GFR ( Amer) Est GFR (Non-Af Amer) BUN/Creatinine Ratio (10-20) Glucose (70-99) mg/dl POC Glucose 50 L* 57 L* 57 L* (70-99) Estimat Average Glucose mg/dl Hemoglobin A1c (4.5-5.6) % Calcium (8.5-10.1) mg/dl Total Bilirubin (0.2-1) mg/dl AST (15-37) U/L ALT (12-78) U/L Alkaline Phosphatase (45-117) U/L Total Protein (6.4-8.2) gm/dl Albumin (3.4-5.0) gm/dl Globulin (2.5-4.0) gm/dl Albumin/Globulin Ratio (0.9-2) Lipase (73-393) U/L Specimen Hemolysis Urine Color Urine Appearance (Clear) Urine pH (4.5-7.5) Ur Specific Dixon (1.000-1.060) Urine Protein (Negative) Urine Glucose (UA) (Negative) Urine Ketones (Negative) Urine Blood (Negative) Urine Nitrite (Negative) Urine Bilirubin (Negative) Urine Urobilinogen (Negative) Ur Leukocyte Esterase (Negative) Urine RBC (0-4) /hpf Urine WBC (0-5) /hpf Ur Epithelial Cells (0-5) /lpf Calcium Oxalate Crystal (None Prsent) Urine Bacteria (Negative) Nasal Screen MRSA (PCR) (Negative) Blood Type Antibody Screen Crossmatch 11/28/18 11/28/18 11/28/18 Range/Units 16:31 16:32 16:47 RBC (4.7-6.1) M/uL MCV (80-100) fL MCH (25-34) pg MCHC (32-36) g/dL RDW Std Deviation (36.4-46.3) fL RDW Coeff of Yue (11.5-14.5) % MPV (7.4-10.4) fL Immature Gran % (Auto) % Neut % (Auto) % Lymph % (Auto) % Moca % (Auto) % Eos % (Auto) % Baso % (Auto) % Immature Gran # (Auto) (0.00-0.02) K/uL Neut # (Auto) (1.4-6.5) K/uL Lymph # (Auto) (1.2-3.4) K/uL Moca # (Auto) (0.11-0.59) K/uL Eos # (Auto) (0-0.5) K/uL Baso # (Auto) (0-0.2) K/uL Hypochromasia PT (9.0-12.0) Seconds INR (0.9-1.1) APTT (21.0-31.0) Seconds PTT Ratio Sodium (136-145) mmol/L Potassium (3.5-5.1) mmol/L Chloride (98-107) mmol/L Carbon Dioxide (21-32) mmol/L Anion Gap (3-11) BUN (7-18) mg/dl Creatinine (0.6-1.4) mg/dl Est Cr Clr Drug Dosing ml/min Est GFR ( Amer) Est GFR (Non-Af Amer) BUN/Creatinine Ratio (10-20) Glucose (70-99) mg/dl POC Glucose 91 68 L* 76 (70-99) Estimat Average Glucose mg/dl Hemoglobin A1c (4.5-5.6) % Calcium (8.5-10.1) mg/dl Total Bilirubin (0.2-1) mg/dl AST (15-37) U/L ALT (12-78) U/L Alkaline Phosphatase (45-117) U/L Total Protein (6.4-8.2) gm/dl Albumin (3.4-5.0) gm/dl Globulin (2.5-4.0) gm/dl Albumin/Globulin Ratio (0.9-2) Lipase (73-393) U/L Specimen Hemolysis Urine Color Urine Appearance (Clear) Urine pH (4.5-7.5) Ur Specific Dixon (1.000-1.060) Urine Protein (Negative) Urine Glucose (UA) (Negative) Urine Ketones (Negative) Urine Blood (Negative) Urine Nitrite (Negative) Urine Bilirubin (Negative) Urine Urobilinogen (Negative) Ur Leukocyte Esterase (Negative) Urine RBC (0-4) /hpf Urine WBC (0-5) /hpf Ur Epithelial Cells (0-5) /lpf Calcium Oxalate Crystal (None Prsent) Urine Bacteria (Negative) Nasal Screen MRSA (PCR) (Negative) Blood Type Antibody Screen Crossmatch 11/28/18 11/29/18 11/29/18 Range/Units 20:24 06:32 06:32 RBC 2.73 L (4.7-6.1) M/uL MCV 98.5 (80-100) fL MCH 30.8 (25-34) pg MCHC 31.2 L (32-36) g/dL RDW Std Deviation 52.3 H (36.4-46.3) fL RDW Coeff of Yue 14.6 H (11.5-14.5) % MPV 8.4 (7.4-10.4) fL Immature Gran % (Auto) % Neut % (Auto) % Lymph % (Auto) % Moca % (Auto) % Eos % (Auto) % Baso % (Auto) % Immature Gran # (Auto) (0.00-0.02) K/uL Neut # (Auto) (1.4-6.5) K/uL Lymph # (Auto) (1.2-3.4) K/uL Moca # (Auto) (0.11-0.59) K/uL Eos # (Auto) (0-0.5) K/uL Baso # (Auto) (0-0.2) K/uL Hypochromasia PT (9.0-12.0) Seconds INR (0.9-1.1) APTT (21.0-31.0) Seconds PTT Ratio Sodium 141 (136-145) mmol/L Potassium 4.3 (3.5-5.1) mmol/L Chloride 109 H (98-107) mmol/L Carbon Dioxide 30 (21-32) mmol/L Anion Gap 2.0 L (3-11) BUN 32 H (7-18) mg/dl Creatinine 1.65 H (0.6-1.4) mg/dl Est Cr Clr Drug Dosing 38.9 ml/min Est GFR ( Amer) 43.2 Est GFR (Non-Af Amer) 37.3 BUN/Creatinine Ratio 19.4 (10-20) Glucose 51 L* (70-99) mg/dl POC Glucose 84 (70-99) Estimat Average Glucose mg/dl Hemoglobin A1c (4.5-5.6) % Calcium 8.9 (8.5-10.1) mg/dl Total Bilirubin (0.2-1) mg/dl AST (15-37) U/L ALT (12-78) U/L Alkaline Phosphatase (45-117) U/L Total Protein (6.4-8.2) gm/dl Albumin (3.4-5.0) gm/dl Globulin (2.5-4.0) gm/dl Albumin/Globulin Ratio (0.9-2) Lipase (73-393) U/L Specimen Hemolysis Urine Color Urine Appearance (Clear) Urine pH (4.5-7.5) Ur Specific Dixon (1.000-1.060) Urine Protein (Negative) Urine Glucose (UA) (Negative) Urine Ketones (Negative) Urine Blood (Negative) Urine Nitrite (Negative) Urine Bilirubin (Negative) Urine Urobilinogen (Negative) Ur Leukocyte Esterase (Negative) Urine RBC (0-4) /hpf Urine WBC (0-5) /hpf Ur Epithelial Cells (0-5) /lpf Calcium Oxalate Crystal (None Prsent) Urine Bacteria (Negative) Nasal Screen MRSA (PCR) (Negative) Blood Type Antibody Screen Crossmatch 11/29/18 11/29/18 11/29/18 Range/Units 07:33 07:52 11:13 RBC (4.7-6.1) M/uL MCV (80-100) fL MCH (25-34) pg MCHC (32-36) g/dL RDW Std Deviation (36.4-46.3) fL RDW Coeff of Yue (11.5-14.5) % MPV (7.4-10.4) fL Immature Gran % (Auto) % Neut % (Auto) % Lymph % (Auto) % Moca % (Auto) % Eos % (Auto) % Baso % (Auto) % Immature Gran # (Auto) (0.00-0.02) K/uL Neut # (Auto) (1.4-6.5) K/uL Lymph # (Auto) (1.2-3.4) K/uL Moca # (Auto) (0.11-0.59) K/uL Eos # (Auto) (0-0.5) K/uL Baso # (Auto) (0-0.2) K/uL Hypochromasia PT (9.0-12.0) Seconds INR (0.9-1.1) APTT (21.0-31.0) Seconds PTT Ratio Sodium (136-145) mmol/L Potassium (3.5-5.1) mmol/L Chloride (98-107) mmol/L Carbon Dioxide (21-32) mmol/L Anion Gap (3-11) BUN (7-18) mg/dl Creatinine (0.6-1.4) mg/dl Est Cr Clr Drug Dosing ml/min Est GFR ( Amer) Est GFR (Non-Af Amer) BUN/Creatinine Ratio (10-20) Glucose (70-99) mg/dl POC Glucose 59 L* 78 175 H (70-99) Estimat Average Glucose mg/dl Hemoglobin A1c (4.5-5.6) % Calcium (8.5-10.1) mg/dl Total Bilirubin (0.2-1) mg/dl AST (15-37) U/L ALT (12-78) U/L Alkaline Phosphatase (45-117) U/L Total Protein (6.4-8.2) gm/dl Albumin (3.4-5.0) gm/dl Globulin (2.5-4.0) gm/dl Albumin/Globulin Ratio (0.9-2) Lipase (73-393) U/L Specimen Hemolysis Urine Color Urine Appearance (Clear) Urine pH (4.5-7.5) Ur Specific Dixon (1.000-1.060) Urine Protein (Negative) Urine Glucose (UA) (Negative) Urine Ketones (Negative) Urine Blood (Negative) Urine Nitrite (Negative) Urine Bilirubin (Negative) Urine Urobilinogen (Negative) Ur Leukocyte Esterase (Negative) Urine RBC (0-4) /hpf Urine WBC (0-5) /hpf Ur Epithelial Cells (0-5) /lpf Calcium Oxalate Crystal (None Prsent) Urine Bacteria (Negative) Nasal Screen MRSA (PCR) (Negative) Blood Type Antibody Screen Crossmatch 11/29/18 11/29/18 11/30/18 Range/Units 16:34 20:10 00:24 RBC (4.7-6.1) M/uL MCV (80-100) fL MCH (25-34) pg MCHC (32-36) g/dL RDW Std Deviation (36.4-46.3) fL RDW Coeff of Yue (11.5-14.5) % MPV (7.4-10.4) fL Immature Gran % (Auto) % Neut % (Auto) % Lymph % (Auto) % Moca % (Auto) % Eos % (Auto) % Baso % (Auto) % Immature Gran # (Auto) (0.00-0.02) K/uL Neut # (Auto) (1.4-6.5) K/uL Lymph # (Auto) (1.2-3.4) K/uL Moca # (Auto) (0.11-0.59) K/uL Eos # (Auto) (0-0.5) K/uL Baso # (Auto) (0-0.2) K/uL Hypochromasia PT (9.0-12.0) Seconds INR (0.9-1.1) APTT (21.0-31.0) Seconds PTT Ratio Sodium (136-145) mmol/L Potassium (3.5-5.1) mmol/L Chloride (98-107) mmol/L Carbon Dioxide (21-32) mmol/L Anion Gap (3-11) BUN (7-18) mg/dl Creatinine (0.6-1.4) mg/dl Est Cr Clr Drug Dosing ml/min Est GFR ( Amer) Est GFR (Non-Af Amer) BUN/Creatinine Ratio (10-20) Glucose (70-99) mg/dl POC Glucose 148 H 209 H 167 H (70-99) Estimat Average Glucose mg/dl Hemoglobin A1c (4.5-5.6) % Calcium (8.5-10.1) mg/dl Total Bilirubin (0.2-1) mg/dl AST (15-37) U/L ALT (12-78) U/L Alkaline Phosphatase (45-117) U/L Total Protein (6.4-8.2) gm/dl Albumin (3.4-5.0) gm/dl Globulin (2.5-4.0) gm/dl Albumin/Globulin Ratio (0.9-2) Lipase (73-393) U/L Specimen Hemolysis Urine Color Urine Appearance (Clear) Urine pH (4.5-7.5) Ur Specific Dixon (1.000-1.060) Urine Protein (Negative) Urine Glucose (UA) (Negative) Urine Ketones (Negative) Urine Blood (Negative) Urine Nitrite (Negative) Urine Bilirubin (Negative) Urine Urobilinogen (Negative) Ur Leukocyte Esterase (Negative) Urine RBC (0-4) /hpf Urine WBC (0-5) /hpf Ur Epithelial Cells (0-5) /lpf Calcium Oxalate Crystal (None Prsent) Urine Bacteria (Negative) Nasal Screen MRSA (PCR) (Negative) Blood Type Antibody Screen Crossmatch 11/30/18 11/30/18 11/30/18 Range/Units 07:48 11:38 16:40 RBC (4.7-6.1) M/uL MCV (80-100) fL MCH (25-34) pg MCHC (32-36) g/dL RDW Std Deviation (36.4-46.3) fL RDW Coeff of Yue (11.5-14.5) % MPV (7.4-10.4) fL Immature Gran % (Auto) % Neut % (Auto) % Lymph % (Auto) % Moca % (Auto) % Eos % (Auto) % Baso % (Auto) % Immature Gran # (Auto) (0.00-0.02) K/uL Neut # (Auto) (1.4-6.5) K/uL Lymph # (Auto) (1.2-3.4) K/uL Moca # (Auto) (0.11-0.59) K/uL Eos # (Auto) (0-0.5) K/uL Baso # (Auto) (0-0.2) K/uL Hypochromasia PT (9.0-12.0) Seconds INR (0.9-1.1) APTT (21.0-31.0) Seconds PTT Ratio Sodium (136-145) mmol/L Potassium (3.5-5.1) mmol/L Chloride (98-107) mmol/L Carbon Dioxide (21-32) mmol/L Anion Gap (3-11) BUN (7-18) mg/dl Creatinine (0.6-1.4) mg/dl Est Cr Clr Drug Dosing ml/min Est GFR ( Amer) Est GFR (Non-Af Amer) BUN/Creatinine Ratio (10-20) Glucose (70-99) mg/dl POC Glucose 104 H 195 H 139 H (70-99) Estimat Average Glucose mg/dl Hemoglobin A1c (4.5-5.6) % Calcium (8.5-10.1) mg/dl Total Bilirubin (0.2-1) mg/dl AST (15-37) U/L ALT (12-78) U/L Alkaline Phosphatase (45-117) U/L Total Protein (6.4-8.2) gm/dl Albumin (3.4-5.0) gm/dl Globulin (2.5-4.0) gm/dl Albumin/Globulin Ratio (0.9-2) Lipase (73-393) U/L Specimen Hemolysis Urine Color Urine Appearance (Clear) Urine pH (4.5-7.5) Ur Specific Dixon (1.000-1.060) Urine Protein (Negative) Urine Glucose (UA) (Negative) Urine Ketones (Negative) Urine Blood (Negative) Urine Nitrite (Negative) Urine Bilirubin (Negative) Urine Urobilinogen (Negative) Ur Leukocyte Esterase (Negative) Urine RBC (0-4) /hpf Urine WBC (0-5) /hpf Ur Epithelial Cells (0-5) /lpf Calcium Oxalate Crystal (None Prsent) Urine Bacteria (Negative) Nasal Screen MRSA (PCR) (Negative) Blood Type Antibody Screen Crossmatch 11/30/18 Range/Units 19:54 RBC (4.7-6.1) M/uL MCV (80-100) fL MCH (25-34) pg MCHC (32-36) g/dL RDW Std Deviation (36.4-46.3) fL RDW Coeff of Yue (11.5-14.5) % MPV (7.4-10.4) fL Immature Gran % (Auto) % Neut % (Auto) % Lymph % (Auto) % Moca % (Auto) % Eos % (Auto) % Baso % (Auto) % Immature Gran # (Auto) (0.00-0.02) K/uL Neut # (Auto) (1.4-6.5) K/uL Lymph # (Auto) (1.2-3.4) K/uL Moca # (Auto) (0.11-0.59) K/uL Eos # (Auto) (0-0.5) K/uL Baso # (Auto) (0-0.2) K/uL Hypochromasia PT (9.0-12.0) Seconds INR (0.9-1.1) APTT (21.0-31.0) Seconds PTT Ratio Sodium (136-145) mmol/L Potassium (3.5-5.1) mmol/L Chloride (98-107) mmol/L Carbon Dioxide (21-32) mmol/L Anion Gap (3-11) BUN (7-18) mg/dl Creatinine (0.6-1.4) mg/dl Est Cr Clr Drug Dosing ml/min Est GFR ( Amer) Est GFR (Non-Af Amer) BUN/Creatinine Ratio (10-20) Glucose (70-99) mg/dl POC Glucose 194 H (70-99) Estimat Average Glucose mg/dl Hemoglobin A1c (4.5-5.6) % Calcium (8.5-10.1) mg/dl Total Bilirubin (0.2-1) mg/dl AST (15-37) U/L ALT (12-78) U/L Alkaline Phosphatase (45-117) U/L Total Protein (6.4-8.2) gm/dl Albumin (3.4-5.0) gm/dl Globulin (2.5-4.0) gm/dl Albumin/Globulin Ratio (0.9-2) Lipase (73-393) U/L Specimen Hemolysis Urine Color Urine Appearance (Clear) Urine pH (4.5-7.5) Ur Specific Dixon (1.000-1.060) Urine Protein (Negative) Urine Glucose (UA) (Negative) Urine Ketones (Negative) Urine Blood (Negative) Urine Nitrite (Negative) Urine Bilirubin (Negative) Urine Urobilinogen (Negative) Ur Leukocyte Esterase (Negative) Urine RBC (0-4) /hpf Urine WBC (0-5) /hpf Ur Epithelial Cells (0-5) /lpf Calcium Oxalate Crystal (None Prsent) Urine Bacteria (Negative) Nasal Screen MRSA (PCR) (Negative) Blood Type Antibody Screen Crossmatch Medications Administered Current Inpatient Medications Acetaminophen (Tylenol) 650 mg PO Q4H PRN PRN Reason: Pain or Fever Stop: 12/26/18 19:57 Ascorbic Acid (Vitamin C) 500 mg PO DAILY [facility] Stop: 12/27/18 08:59 Last Admin: 11/30/18 07:47 Dose: 500 mg Calcitriol (Racaltrol) 0.25 mcg PO DAILY [facility] Stop: 12/27/18 08:59 Last Admin: 11/30/18 07:47 Dose: 0.25 mcg Citalopram Hydrobromide (Celexa) 20 mg PO DAILY [facility] Stop: 12/27/18 08:59 Last Admin: 11/30/18 07:46 Dose: 20 mg Dextrose (Dextrose 50%) 25 - 50 ml IV UD PRN; Protocol PRN Reason: Hypoglycemia Protocol Stop: 12/26/18 19:57 Fluticasone Propionate (Flonase) 2 sprays LAURA DAILY [facility] Stop: 12/27/18 08:59 Last Admin: 11/30/18 07:46 Dose: 2 sprays Glucagon (Glucagen) 1 mg SQ UD PRN; Protocol PRN Reason: Hypoglycemia Protocol Stop: 12/26/18 19:57 Glucose (Glucose 40%) 15 - 30 gm PO UD PRN; Protocol PRN Reason: Hypoglycemia Protocol Stop: 12/26/18 19:57 Glucose (Dex4 Glucose) 4 - 8 tabs PO UD PRN; Protocol PRN Reason: Hypoglycemia Protocol Stop: 12/26/18 19:57 Sodium Chloride (Nss 250ml) 250 mls @ 15 mls/hr IV .[id number] PRN PRN Reason: For Transfusion Stop: 12/26/18 19:57 Insulin Aspart (Novolog Flexpen) 0 units SC ACHS [facility] Stop: 12/30/18 07:29 Last Admin: 11/30/18 20:03 Dose: 1 units Levothyroxine Sodium (Synthroid) 112 mcg PO DAILYBB [facility] Stop: 12/27/18 06:29 Last Admin: 11/30/18 06:14 Dose: 112 mcg Levothyroxine Sodium (Synthroid) 25 mcg PO DAILYBB [facility] Stop: 12/27/18 06:29 Last Admin: 11/30/18 06:15 Dose: 25 mcg Magnesium Oxide (Mag-Ox) 400 mg PO DAILY [facility] Stop: 12/27/18 08:59 Last Admin: 11/30/18 07:47 Dose: 400 mg Metoprolol Tartrate (Lopressor) 12.5 mg PO BID [facility] Stop: 12/26/18 20:59 Last Admin: 11/30/18 20:01 Dose: 12.5 mg Miconazole Nitrate (Desenex) 1 appln EXT BID [facility] Stop: 12/27/18 20:59 Last Admin: 11/30/18 20:00 Dose: 1 appln Miscellaneous (Carbohydrates For Hypoglycemia) 15 - 30 gm PO UD PRN PRN Reason: Hypoglycemia Treatment Stop: 12/26/18 19:57 Last Admin: 11/29/18 07:36 Dose: 15 gm Pantoprazole Sodium (Protonix) 40 mg PO DAILY [facility] Stop: 12/27/18 08:59 Last Admin: 11/30/18 07:47 Dose: 40 mg Polyethylene Glycol (Miralax Powder Packet) 17 gm PO DAILY PRN PRN Reason: Constipation Stop: 12/26/18 18:32 Potassium Chloride (Klor-Con M10) 10 meq PO DAILY [facility] Stop: 12/27/18 08:59 Last Admin: 11/30/18 07:47 Dose: 10 meq Simvastatin (Zocor) 20 mg PO HS [facility] Stop: 12/26/18 20:59 Last Admin: 11/30/18 20:00 Dose: 20 mg Tamsulosin HCl (Flomax) 0.4 mg PO DAILY [facility] Stop: 12/27/18 08:59 Last Admin: 11/30/18 07:46 Dose: 0.4 mg Vitamin D (Vitamin D3) 2,000 units PO DAILY [facility] Stop: 12/27/18 08:59 Last Admin: 11/30/18 07:47 Dose: 2,000 units _ (1) Hematuria Glomerular morphologic changes: Hematuria type: gross Qualified Code(s): R31.0 - Gross hematuria (2) DM type 2 (diabetes mellitus, type 2) Chronic kidney disease stage: stage 3 (moderate) Diabetes mellitus complication detail: with chronic kidney disease Diabetes mellitus complication status: with kidney complications Diabetes mellitus terminal computer operator insulin use: unspecified retirement insulin use status Diabetes mellitus macular edema: Diabetic retinopathy severity: Laterality: Proliferative retinopathy type: Qualified Code(s): E11.22 - Type 2 diabetes mellitus with diabetic chronic kidney disease; N18.3 - Chronic kidney disease, stage 3 ( moderate)
[2018-11-30] MEDS: SIMVASTATIN 20 MG TAB PO SCH (20:00)
[2018-12-01] MEDS: LEVOTHYROXINE SODIUM 112 MCG TABLET PO SCH (06:11)
[2018-12-01] MEDS: LEVOTHYROXINE SODIUM 25 MCG TABLET PO SCH (06:12)
[2018-12-01] MEDS: CITALOPRAM 20 MG TAB PO SCH (07:49)
[2018-12-01] MEDS: METOPROLOL TARTRATE 25 MG TAB PO SCH (07:49)
[2018-12-01] MEDS: CHOLECALCIFEROL 1,000 UNITS TAB PO SCH (07:49)
[2018-12-01] MEDS: CALCITRIOL 0.25 MCG CAPSULE PO SCH (07:49)
[2018-12-01] MEDS: PANTOprazole 40 MG TAB PO SCH (07:50)
[2018-12-01] MEDS: ASCORBIC ACID 500 MG TAB PO SCH (07:51)
[2018-12-01] MEDS: FLUTICASONE PROPIONATE NA SPR 16 GM BTL NAE SCH (07:51)
[2018-12-01] MEDS: TAMSULOSIN HCL 0.4 MG CAP PO SCH (07:51)
[2018-12-01] MEDS: POTASSIUM CHLORIDE 10 MEQ TABCR PO SCH (07:51)
[2018-12-01] MEDS: MAGNESIUM OXIDE 400 MG TAB PO SCH (07:51)
[2018-12-01] MEDS: INSULIN ASPART 100 UNITS/ML 3 ML PEN SC SCH (07:56)
[2018-12-01] MEDS: MICONAZOLE NITRATE POWDER 43 GM EXT SCH (07:56)
--- NOTE | 2018-12-01 09:16 | Urology Progress Note ---
Date of Service December 01, 2018 Assessment & Plan (1) Radiation cystitis: Gross hematuria on arrival now clear - no H and H today - d/c catheter prior to d/c home - no further interventions - please call if any further concerns during this hospitalization Subjective urine remains clear no other major issues Physical Exam 2 Vital Signs (Past 24 Hours): Last Vital Signs Temp 36.6 C 12/01/18 07:56 Pulse 89 12/01/18 07:56 Resp 22 12/01/18 07:56 BP 106/50 L 12/01/18 07:56 Pulse Ox 98 12/01/18 07:56 Physical Exam: NAD AAox3 no resp distress RRR abd soft urine clear
[2018-12-01 12:02] LABS: Hemoglobin 8.1 g/dL (14.0-18.0)
--- NOTE | 2018-12-05 10:50 | Discharge Summary ---
Date of Service December 05, 2018 Admission HPI Per Admitting Provider The patient is an 83-year-old man with a history of prostate cancer status post radiation with a history of radiation cystitis. He was recently admitted to [facility] 2 weeks ago for gross hematuria with a recurrent complicated UTI secondary to E. coli. At that time he was found to have acute blood loss anemia requiring 1 unit of packed red blood cells. He has a history of dementia and cannot provide any history from his discharge until now. At some point he redeveloped worsening dysuria, urinary urgency, urinary frequency and suprapubic pain. He denies any flank pain, and has no history of kidney stones per his report. His suprapubic pain is only present upon palpation and does not radiate. He is answering questions well, and is clearly not delirious , but is only oriented to self. During his last admission urology placed a three-way catheter and bladder irrigation was performed and his Leone catheter was subsequently discontinued on 11/08. He continued to have passage of hematuria and blood clots intermittently without evidence of bladder outlet obstruction prior to discharge. He returns today from [facility] where he was undergoing rehabilitation from prior hospital stay. He denies any chest pain, shortness of breath, fever, chills. He reports tolerating p.o. without issue and has been reportedly staying hydrated. He reports no issues ambulating with his walker with respect to lightheadedness. He reports that his medical power of county attorney is 1 of his daughters, possibly Florence or possibly Katerine. Admission Exam Per Admitting Provider CONSTITUTIONAL: obese, vitals as above, generally well-appearing EYES: normal conjuctivae, no scleral icterus ENT: MMM RESPIRATORY: clear to auscultation bilaterally, no crackles, rales or wheezes, normal respiratory effort CARDIOVASCULAR: irregular rate and irreg rhythm, S1 and 2 heard without murmurs , gallops or rubs, no JVD, no peripheral edema. ABDOMINAL: normal bowel sounds, soft, protuberant abdomen with large pannus, TTP in suprapubic region, nondistended. no CVA tenderness, small midline hernia is present in lower abdomen-reducible. MUSCULOSKELETAL: generalized weakness, head is normocephalic and atraumatic SKIN: warm and dry, erythroderma to bilateral LE NEUROLOGIC: No facial palsy, no dysarthria. CN 2-12 grossly intact, oriented to self only, normal speech PSYCHIATRIC: alert cooperative and oriented to person only, euthymic mood. Principal Diagnosis acute blood loss anemia 2/2 gross hematuria Discharge Exam CONSTITUTIONAL: obese, vitals as above, appears clinically well although not oriented to place or time, appears to be at baseline. EYES: normal conjuctivae, no scleral icterus ENT: MMM RESPIRATORY: clear to auscultation bilaterally, no crackles, rales or wheezes, normal respiratory effort CARDIOVASCULAR: irregular rate and irreg rhythm, S1 and 2 heard without murmurs , gallops or rubs, no JVD, no peripheral edema. ABDOMINAL: normal bowel sounds, soft, protuberant abdomen with large pannus, nontender, small reducible hernia in this region, abdomen nondistended. MUSCULOSKELETAL: generalized weakness, head is normocephalic and atraumatic SKIN: warm and dry, erythroderma to bilateral LE-no acute changes. NEUROLOGIC: No facial palsy, no dysarthria. CN 2-12 grossly intact, oriented to self only, pt doesn't know where he is or why he is here. normal speech PSYCHIATRIC: alert cooperative and oriented to person only, euthymic mood. Discharge Data Allergies Allergy/AdvReac Type Severity Reaction Status Date / Time No Known Allergies Allergy Verified 11/04/18 15:11 Consultations 11/26/18 17:57 ED Decision to Admit Stat 11/26/18 19:58 Consult Case Management - Discharge Planning Routine Consult Urology Routine Ordered Studies 11/26/18 16:31 CT abd pelvis wo con Stat Hospital Course (1) Acute blood loss anemia: (2) Hematuria: (3) Prostate cancer: (4) CKD (chronic kidney disease), stage IV: (5) DM type 2 (diabetes mellitus, type 2): (6) Dementia: 83-year-old man with history of gross hematuria secondary to radiation cystitis for treatment of prostate cancer. [facility] episode of [facility] and some gross hematuria seen by staff there including clots. On arrival to the ER he was stable but mildly tachycardic and afebrile. H&H revealed 6.5/21.2 CBC was otherwise normal. BMP was normal with renal function at baseline. He was given 2 units of packed red blood cells with appropriate response in H&H. He required no further blood transfusions during the hospitalization and remained hemodynamically stable. His gross hematuria eventually resolved spontaneously after Leone placement. Urology was consulted and decided against intervention, especially after spontaneous resolution of hematuria. On admission he was noted to have bacteria in his urine and was started empirically on Rocephin. However this was stopped after 1 day when the culture returned as normal. He had notably been on a prolonged course of ciprofloxacin for prior UTI in the past. Of note if hematuria had not resolved urology med they may needs intervention with instillation, irrigation B and fulguration, however, they would hold off unless absolutely necessary. At time of discharge he was urinating spontaneously clear urine per nursing staff. He was hemodynamically stable and afebrile and mentating and ambulating at baseline. He was discharged in stable condition with close primary care follow-up recommended. Total Time Total Time Spent Total Time Spent (In Minutes): 60 Total Time Includes: Examination of the Patient, Discharge Planning, Medication Reconciliation and Communication With Other Providers Discharge Plan Discharge Items Patient Disposition: Transfer [facility] Fac Reason For Visit: ANEMIA Discharge Diagnosis: acute blood loss anemia 2/2 gross hematuria Condition: Good Discharge Goals: Improve disease control and Increase independence Activity: Resume your previous activity Non-emergency contact: Primary Care Provider Call non-emergency contact if: you have any medication questions, your symptoms worsen, your pain is not controlled, your pain is worsening and you have a fever Follow-up/Referrals: Didier Rodrigues MD [Physician] - Luis Manuel Hinojosa DO [Physician] - Diet: Carb Consistent or DM2 and Heart Healthy Diet Texture: Dental soft (bite-sized) Addtl Provider Instructions: Please take all medications as instructed on discharge list below. It is recommended that you follow-up with your primary care physician within one week of discharge from the hospital. Please follow-up with Urology as instructed. It was a pleasure taking care of you! Please call if you have any questions or problems. You can reach a [facility] hospitalist on duty at [facility] 24 hours a day by calling [phone]. Take care of yourself. Angelique Jacinto DO [facility] Prescriptions: Continue calcitriol 0.25 mcg capsule 0.25 mcg PO DAILY RF: 0 ascorbic acid (vitamin C) 500 mg capsule 500 mg PO DAILY RF: 0 citalopram [Celexa] 20 mg tablet 20 mg PO DAILY RF: 0 ferrous sulfate 325 mg (65 mg iron) tablet,delayed release (DR/EC) 325 mg PO DAILY RF: 0 fluticasone [Flonase Allergy Relief] 50 mcg/actuation spray,suspension 2 sprays INTNAS DAILY RF: 0 levothyroxine 137 mcg capsule 137 mcg PO DAILY RF: 0 magnesium oxide 400 mg capsule 400 mg PO DAILY RF: 0 omeprazole 20 mg tablet,delayed release (DR/EC) 20 mg PO DAILY RF: 0 polyethylene glycol 3350 [Miralax] 17 gram/dose powder 17 gm PO DAILY PRN (Reason: Constipation) RF: 0 tamsulosin [Flomax] 0.4 mg capsule 0.4 mg PO DAILY RF: 0 acetaminophen [Tylenol] 325 mg Capsule 650 mg PO Q4 MDD 3g/24hr PRN (Reason: Fever Or Pain) RF: 0 cholecalciferol (vitamin D3) [Vitamin D3] 2,000 unit Tablet 2,000 unit PO DAILY RF: 0 torsemide 20 mg Tablet 20 mg PO DAILY RF: 0 potassium chloride 10 mEq Tablet Extended Release 10 meq PO DAILY RF: 0 simvastatin 20 mg Tablet 20 mg PO HS RF: 0 metoprolol tartrate 25 mg Tablet 12.5 mg PO BID RF: 0 insulin lispro 100 unit/mL solution subcut UD PRN (Reason: Hyperglycemia) RF: 0 Lactobacillus acidoph-L.bulgar [Floranex] 1 million cell Tablet 1 tab PO TID RF: 0 Discontinued ciprofloxacin HCl [Cipro] 500 mg Tablet 500 mg PO DAILY RF: 0 Stand-Alone Forms: [facility] Discharge Orders: Discharge Order (Routine); Ordered 12/01/18 Ordered By: Angelique Jacinto Skilled Items Patient informed of condition?: Yes DNR: Yes Discharge Level of Care: Skilled Communicable Disease: No Discharge Prognosis: Stable Admission Data Admit Date/Time: 11/26/18 18:43 Attending Provider: Angelique Jacinto Admit Provider: Angelique Jacinto Primary Care Provider: Mario Perez Other Providers: Fransisco Gotti II Service: Telemetry Other Interventions: Discharge Summary Assessment (RN) Last Done: 12/01/18 14:34 DC Date/Time DO NOT enter until pt leaves facility: 12/01/18 15:54
--- NOTE | 2018-12-06 06:54 | Coding Query ---
CODING QUERY To promote full compliance with coding requirements relating to patient care, provider participation is requested in all cases of dye operator uncertainty. Please assist us with the question(s) below: Coding Question(s): There is documentation of acute blood loss anemia due to gross hematuria and documentation of a history of gross hematuria secondary to radiation cystitis for treatment of prostate cancer. Please specify below, in your clinical opinion, regarding the etiology of the gross hematuria during this admission. (x ) Gross Hematuria likely secondary to Radiation Cystitis ( ) Gross Hematuria likely secondary to Prostate Cancer ( ) Gross Hematuria likely secondary to other: Pleas Specify ___ ( ) Gross Hematuria with unknown likely etiology Physician's Response(s): Thank you Tisha Patel Principal Diagnosis: "that condition established after study, to be chiefly responsible for occasioning the admission of the patient to the hospital for care." Co-Existing Principal Diagnosis: "when two or more diagnoses equally meet the criteria for principal diagnosis as determined by the circumstances of admission , diagnostic work up, and/or therapy provided, and the Alphabetic Index, Tabular List, or another coding guideline does not provide sequencing direction , any one of the diagnoses may be sequenced first." "When the physician has documented what appears to be a current diagnosis in the body of the record, but has not included the diagnosis in the final diagnostic statement, the physician should be asked whether the diagnosis should be added." (Source Coding [facility] 2 QTR90. p3-4) WILMAN
== END 2018-12-01 15:54 | DRG 699 ==
LOC: ED 16:11 → 2S 18:43 → 4E 11-29 12:16